=== PATIENT | female | born 1945 | race Caucasian/White ===

== ENCOUNTER 2021-01-06 15:22 | Inpatient (IN) | payer MEDICARE, OTHER ==
[~2021-01-06] VITALS: Ht 162.6 cm; Wt 52.2 kg
--- NOTE | 2021-01-06 15:25 | NUR ---
TO ER BED 12, BIB [facility] FROM [facility] FOR REFUSING TO EAT/DRINK OR TAKE MEDICATIONS, AAOX3, BREATHING EVEN AND NON LABORED, CONNECTED TO MONITOR
--- NOTE | 2021-01-06 16:38 | NUR ---
INITIATED R HAND #20G S/L; PATENT AND INTACT. BLOOD DRAWN AND GIVEN TO LAB
[2021-01-06 16:40] LABS: BASOPHILS % (AUTO) 0.4 % (0.0-2.0); EOSINOPHILS % (AUTO) 1.3 % (0.0-6.0); HEMATOCRIT 40 % (33-45); HEMOGLOBIN 13.4 g/dL (11.5-14.8); LYMPHOCYTES # (AUTO) 1.7 K/uL (0.8-4.8); LYMPHOCYTES % (AUTO) 27.9 % (20.0-44.0); MEAN CORPUSCULAR HGB CONC 33 g/dl (31.0-36.0); MEAN CORPUSCULAR VOLUME 85 fL (82-100); MONOCYTES # (AUTO) 0.4 K/uL (0.1-1.30); NEUTROPHILS # (AUTO) 3.9 K/uL (1.8-8.9); NEUTROPHILS % (AUTO) 63.4 % (43.0-81.0); PLATELET COUNT (AUTO) 259 K/uL (150-450); RED BLOOD CELL COUNT(AUTO) 4.76 MIL/uL (4.0-5.2); WHITE BLOOD COUNT (AUTO) 6.1 K/uL (4.3-11.0)
[2021-01-06 17:00] LABS: CALCIUM, SERUM 8.9 mg/dL (8.5-10.1); CARBON DIOXIDE 15 mmol/L (21-32); CHLORIDE 101 mmol/L (98-107); CREATININE 0.8 mg/dL (0.6-1.3); GLUCOSE 72 mg/dL (74-106); POTASSIUM 4.4 mmol/L (3.5-5.1); SODIUM SERUM 135 mmol/L (136-145); UREA NITROGEN, BLOOD 22 mg/dL (7-18)
[2021-01-06 17:03] LABS: ALCOHOL, BLOOD < 3 mg/dL (0-0)
[2021-01-06 17:04] LABS: ACETAMINOPHEN < 10 ug/ml (10-30)
[2021-01-06 17:05] LABS: THYROID STIMULATING HORMONE 1.119 uIU/mL (0.358-3.74)
--- NOTE | 2021-01-06 17:11 | NUR ---
URINE COLLECTED AND SENT TO LAB
[2021-01-06] MEDS ORDERED: RISP1TAB7 PO (17:26)
[2021-01-06] MEDS ORDERED: DOCU-141 PO (17:26)
[2021-01-06] MEDS ORDERED: POLY17PO4 PO (17:26)
[2021-01-06] MEDS ORDERED: ATOR10TA PO (17:26)
[2021-01-06] MEDS ORDERED: MAGN400O6 PO (17:26)
[2021-01-06] MEDS ORDERED: DIVA500T2 PO (17:26)
[2021-01-06] MEDS ORDERED: BENZ0.5T43 PO (17:26)
[2021-01-06] MEDS ORDERED: ACET325T53 PO (17:26)
[2021-01-06] MEDS ORDERED: BISA10SU11 RC (17:26)
[2021-01-06] MEDS ORDERED: NA P133E RC (17:26)
--- NOTE | 2021-01-06 17:28 | NUR ---
COVID SWAB DONE AND SENT TO LAB
[2021-01-06 17:47] LABS: BILIRUBIN,URINE SMALL (NEGATIVE); COLOR,URINE YELLOW (YELLOW); LEUKOCYTE ESTERASE ,URINE NEGATIVE (NEGATIVE); NITRITE, URINE NEGATIVE (NEGATIVE); PH,URINE 5.5 (5.0-8.0); PROTEIN,URINE NEGATIVE (NEGATIVE); UGLUCOSE NEGATIVE (NEGATIVE); UROBILINOGEN,URINE 0.2 EU/dL (0.2)
--- NOTE | 2021-01-06 18:26 | NUR ---
Barb workman in [facility] - 01/06/21 at 1827 by YADY CODE STATUS ORDER: DNPenny KIM MD
--- NOTE | 2021-01-06 18:27 | NUR ---
CODE STATUS POLST ORDER: DNR PER MULU KIM MD
[2021-01-06] MEDS ORDERED: NA PHOS,M-B/NA PHOS,DI-BA 1 EA ENEMA RC PRN (19:00)
[2021-01-06] MEDS ORDERED: ACETAMINOPHEN 325 MG TABLET PO PRN ×2 (19:00→22:30)
[2021-01-06] MEDS ORDERED: MAGNESIUM HYDROXIDE 30 ML UDC PO PRN ×2 (19:00→22:30)
[2021-01-06] MEDS ORDERED: BISACODYL SUPP (10 MG) 10 MG/SUPP.RECT SUPP.RECT RC PRN (19:00)
--- NOTE | 2021-01-06 19:50 | NUR ---
218-2 PER RN MIDDLE SCHOOL COACH
--- NOTE | 2021-01-06 19:55 | NUR ---
COVID SWAB SENT TO LAB
--- NOTE | 2021-01-06 20:34 | NUR ---
GAVE REPORT TO RAHEEM VICKERS FOR RAFAEL
[2021-01-06] MEDS: ATORVASTATIN 10 MG TABLET PO SCH (22:00)
[2021-01-06 22:02] VITALS: BP 128/53
--- NOTE | 2021-01-06 22:03 | NUR ---
GPS ADMISSION NOTE, RECEIVED PATIENT FROM [facility] . PATIENT ARRIVED ON THIS UNIT AT 2203 VIA STRETCHER WITH 2 EMT ESCORTS. PATIENT ADMITTED ON A 5150 HOLD FOR DTS AND GD. PER HOLD PATIENT HAS BEEN REFUSING TO EAT AND DRINK FOR FOUR DAYS. PATIENT HAS BEEN REFUSING MEDICATION, HAS POOR INSIGHT, AND HAS IMPAIRED JUDGMENT. PATIENT HAS NO VIABLE PLAN FOR SELF CARE. THE 5150 WAS REVIEWED AND THE DOCUMENTATION IN THE 5150 HOLD APPEARS TO REFLECT THE PRESENTATION OF THE PATIENT. UPON FACE TO FACE ASSESSMENT PATIENT IS NOTED TO BEING, DISHEVELED, DISORGANIZED, DEPRESSED, ISOLATIVE, COOPERATIVE, AND NEEDS REDIRECTION. PATIENT IS CURRENTLY LYING IN BED AWAKE, HAS NO S/S OR COMPLAINTS OF PAIN. PATIENT IS DISPLAYING NO S/S OF APPARENT DISTRESS. PATIENT BREATHING IS UNLABORED WITH EQUAL RISE AND FALL OF THE CHEST. PATIENT IS ALERT AND ORIENTATED X 2 ON ROOM AIR. PATIENT ASSISTED WITH TURING AND REPOSITIONING Q2HR AND PRN FOR COMFORT AND CIRCULATION. PATIENT HAS NO NEEDS AT THIS TIME. PATIENT DENIES SUICIDE IDEATIONS AND HOMICIDAL IDEATIONS AT THIS TIME. PATIENT REFUSED TO SIGNS ANY PAPER WORK AND THINKS THIS IS ALL A MISTAKE. PATIENT ADVISED OF HER HOLD AND PATIENT RIGHTS BOOKLET GIVEN. PATIENT IS UNDER THE PSYCHIATRIC CARE OF DR. RED AND THE MEDICAL CARE OF DR KIM. PATIENT BELONGINGS WERE INVENTORIED AND CHECKED FOR CONTRABAND. ALL CONTRABAND REMOVED AND STORED IN PATIENT HALLWAY LOCKER. PATIENT ADVANCED DIRECTIVES PREFERENCE, IMMUNIZATIONS QUESTIONER, NECESSARY PAPERWORK COMPLETED. PATIENT SKIN ASSESSMENT COMPLETED. PATIENT ORIENTATED TO ROOM, FLOOR, AND STAFF WITH ALL QUESTIONS ANSWERED. PATIENT EDUCATED ON THE USE OF THE CALL RILEY. PATIENT BED SIDE RAILS ARE UP X 2 FOR SAFETY. PATIENT BED IS LOCKED, LOW AND I WILL CONTINUE TO MONITOR THIS PATIENT Q 15 MIN WITH THE HELP OF STAFF TO MAINTAIN SAFETY.
--- NOTE | 2021-01-06 22:24 | NUR ---
GPS RN NOTE, PATIENT REFUSED LIPITOR 10MG PO HS. OFFERED LIPITOR THREE TIMES AND STILL PATIENT REFUSED STATING, " NO I DON'T NEED CHOLESTEROL MEDICATION ". EDUCATED PATIENT ON THE RISKS AND BENEFITS OF TAKING AND REFUSING LIPITOR. WILL CONTINUE TO MONITOR THIS PATIENT WITH THE HELP OF STAFF.
[2021-01-06] MEDS ORDERED: MAG HYDROX/AL HYDROX/SIMETH 30 ML UDC PO PRN (22:30)
[2021-01-06] MEDS ORDERED: TEMAZEPAM 7.5 MG CAPSULE PO PRN (22:30)
[2021-01-06] MEDS ORDERED: BLOOD SUGAR DIAGNOSTIC 1 EACH STRIP IN ONE (23:30)
[2021-01-07 08:00] VITALS: BP 100/60
[2021-01-07] MEDS: ENSURE ENLIVE CHOC 237 ML CAN PO SCH ×2 (08:00→16:05)
[2021-01-07] MEDS: DOCUSATE SODIUM 100 MG CAPSULE PO SCH ×4 (09:00→16:05)
[2021-01-07] MEDS: POLYETHYLENE GLYCOL 3350 17 GM POWD.PACK PO SCH (09:40)
[2021-01-07 16:00] VITALS: BP 117/73
--- NOTE | 2021-01-07 19:30 | NUR ---
GPS RN NOTE, RECEIVED PATIENT AWAKE AND IN BED, NO S/S OR COMPLAINTS OF PAIN AT THIS TIME. PATIENT IS DISPLAYING NO S/S OF APPARENT DISTRESS AT THIS TIME. PATIENT BREATHING IS UNLABORED WITH EQUAL RISE AND FALL OF THE CHEST. PATIENT IS ALERT AND ORIENTED X 2 ON ROOM AIR WITH A SPO2 96%. PATIENT IS SELECTIVE WITH MEDICATIONS, CALM, COOPERATIVE, AND NEEDS REDIRECTION. PATIENT DENIES SUICIDAL AND HOMICIDAL IDEATIONS AT THIS TIME. PATIENT ASSISTED WITH TURNING AND REPOSITIONING Q2HR AND PRN FOR COMFORT AND CIRCULATION. PATIENT HAS NO NEEDS AT THIS TIME. PATIENT EDUCATED ON THE USE OF THE CALL RILEY. PATIENT BED SIDE RAILS UP X 2 FOR SAFETY. PATIENT BED IS LOCKED, LOW, WITH BED ALARM ON. WILL CONTINUE TO MONITOR THIS PATIENT Q15 MINUTES WITH THE HELP OF STAFF TO MAINTAIN SAFETY.
[2021-01-07 20:11] VITALS: BP 110/69
[2021-01-07 20:13] VITALS: BP 110/69
[2021-01-07] MEDS: ATORVASTATIN 10 MG TABLET PO SCH (21:35)
[2021-01-07] MEDS: risperiDONE 1 MG TABLET PO SCH (22:11)
[2021-01-08 08:00] VITALS: BP 100/59
[2021-01-08] MEDS: ENSURE ENLIVE CHOC 237 ML CAN PO SCH ×2 (08:00→16:15)
[2021-01-08] MEDS: DIVALPROEX SODIUM 250 MG TABLET.DR PO SCH ×2 (10:45→21:05)
[2021-01-08] MEDS: risperiDONE 1 MG TABLET PO SCH ×2 (10:45→21:05)
[2021-01-08] MEDS: POLYETHYLENE GLYCOL 3350 17 GM POWD.PACK PO SCH (10:48)
[2021-01-08] MEDS: DOCUSATE SODIUM 100 MG CAPSULE PO SCH ×2 (10:48→16:14)
[2021-01-08 16:10] VITALS: BP 91/63
[2021-01-08 19:59] VITALS: BP 99/52
[2021-01-08] MEDS: ATORVASTATIN 10 MG TABLET PO SCH (21:05)
--- NOTE | 2021-01-09 07:30 | NUR ---
RN NOTES Patient alert ,depressed,flat affect ,labile , following directions med compliant, disorganized thoughts ,encourage patient to verbalize feelings and thoughts ,redirect as needed . WILL MONITOR
[2021-01-09 08:00] VITALS: BP 99/66
[2021-01-09] MEDS: ENSURE ENLIVE CHOC 237 ML CAN PO SCH ×2 (08:00→16:59)
[2021-01-09] MEDS: DOCUSATE SODIUM 100 MG CAPSULE PO SCH ×2 (09:14→16:58)
[2021-01-09] MEDS: POLYETHYLENE GLYCOL 3350 17 GM POWD.PACK PO SCH (09:14)
[2021-01-09] MEDS: DIVALPROEX SODIUM 250 MG TABLET.DR PO SCH ×2 (09:14→16:58)
[2021-01-09] MEDS: risperiDONE 1 MG TABLET PO SCH ×2 (09:15→22:07)
[2021-01-09] MEDS: LORAZEPAM 0.5 MG TABLET PO PRN (09:15)
--- NOTE | 2021-01-09 11:40 | NUR ---
GALINA Initial Discharge Plan: Pt currently resides at [facility], however, pt does not want to return back. Pt does not have any supportive contact at this time. GALINA will work with the MD and treatment team to coordinate appropriate discharge.
--- NOTE | 2021-01-09 12:07 | NUR ---
SNF Referral: GALINA faxed clinicals to Raquel from [facility] for placement option.
--- NOTE | 2021-01-09 14:09 | NUR ---
SNF Contact SW spoke with Raquel from [facility] who stated they cannot accept pt due to not having SNF days.
--- NOTE | 2021-01-09 14:10 | NUR ---
SNF Contact: SW spoke with Tanesha villegas from [facility] who stated that pt is welcomed back upon dc, however, they stated pt does not want to go back.
--- NOTE | 2021-01-09 14:10 | NUR ---
Assisted Living: SW spoke with Daly lopez for placement and she stated that she can place pt at an assisted living and will give this SW information.
[2021-01-09 16:00] VITALS: BP 99/56
[2021-01-09 16:22] VITALS: BP 99/56
[2021-01-09] MEDS: ATORVASTATIN 10 MG TABLET PO SCH (22:07)
[2021-01-10] MEDS: ENSURE ENLIVE CHOC 237 ML CAN PO SCH ×2 (08:00→17:00)
[2021-01-10] MEDS ORDERED: risperiDONE 1 MG TABLET PO SCH (09:00)
[2021-01-10] MEDS: DOCUSATE SODIUM 100 MG CAPSULE PO SCH ×2 (09:00→17:00)
[2021-01-10] MEDS: POLYETHYLENE GLYCOL 3350 17 GM POWD.PACK PO SCH (09:24)
[2021-01-10] MEDS: DIVALPROEX SODIUM 250 MG TABLET.DR PO SCH ×3 (09:24→17:35)
--- NOTE | 2021-01-10 13:06 | NUR ---
GALINA Note: SW met with patient and gave pt options of an assisted living. Pt stated she wants to go to "[facility]". Pt appeared labile and angry. Pt yelled "you are a liar". SW unable to discuss any placement options with pt at this time.
[2021-01-10] MEDS: risperiDONE 1 MG TABLET PO SCH ×2 (15:38→21:43)
[2021-01-10] MEDS: BENZTROPINE MESYLATE (1 MG) 1 MG TABLET PO SCH ×2 (15:39→21:43)
[2021-01-10 16:33] VITALS: BP 119/50
[2021-01-10] MEDS: ATORVASTATIN 10 MG TABLET PO SCH (21:43)
[2021-01-11] MEDS: ENSURE ENLIVE CHOC 237 ML CAN PO SCH ×2 (08:00→17:00)
[2021-01-11] MEDS: POLYETHYLENE GLYCOL 3350 17 GM POWD.PACK PO SCH ×2 (09:00→09:46)
[2021-01-11] MEDS: DOCUSATE SODIUM 100 MG CAPSULE PO SCH ×3 (09:00→17:00)
[2021-01-11] MEDS: DIVALPROEX SODIUM 250 MG TABLET.DR PO SCH ×3 (09:46→18:00)
[2021-01-11] MEDS: BENZTROPINE MESYLATE (1 MG) 1 MG TABLET PO SCH ×2 (09:47→17:59)
[2021-01-11] MEDS: risperiDONE 1 MG TABLET PO SCH ×4 (09:47→21:41)
--- NOTE | 2021-01-11 18:00 | NUR ---
day uneventful,keeps to self.isolative.
[2021-01-11] MEDS: ATORVASTATIN 10 MG TABLET PO SCH (21:41)
[2021-01-12] MEDS: ENSURE ENLIVE CHOC 237 ML CAN PO SCH ×2 (08:00→17:17)
[2021-01-12] MEDS: POLYETHYLENE GLYCOL 3350 17 GM POWD.PACK PO SCH (08:55)
[2021-01-12] MEDS: DOCUSATE SODIUM 100 MG CAPSULE PO SCH ×2 (08:55→16:12)
[2021-01-12] MEDS: DIVALPROEX SODIUM 250 MG TABLET.DR PO SCH ×3 (08:55→16:12)
[2021-01-12] MEDS: BENZTROPINE MESYLATE (1 MG) 1 MG TABLET PO SCH ×2 (08:55→16:12)
[2021-01-12] MEDS: risperiDONE 1 MG TABLET PO SCH ×4 (08:55→21:34)
--- NOTE | 2021-01-12 15:11 | NUR ---
Court Hearing: Patient's court hearing for 0860 was today and it was upheld for GD.
--- NOTE | 2021-01-12 19:30 | NUR ---
GPS RN NOTE, RECEIVED PATIENT AWAKE AND IN BED, NO S/S OR COMPLAINTS OF PAIN AT THIS TIME. PATIENT IS DISPLAYING NO S/S OF APPARENT DISTRESS AT THIS TIME. PATIENT BREATHING IS UNLABORED WITH EQUAL RISE AND FALL OF THE CHEST. PATIENT IS ALERT AND ORIENTED X 2 ON ROOM AIR WITH A SPO2 96%. PATIENT IS COMPLIANT WITH MEDICATIONS, ANXIOUS AT TIMES, DEPRESSED, ISOLATIVE, COOPERATIVE, AND NEEDS REDIRECTION. PATIENT DENIES SUICIDAL AND HOMICIDAL IDEATIONS AT THIS TIME. PATIENT ASSISTED WITH TURNING AND REPOSITIONING Q2HR AND PRN FOR COMFORT AND CIRCULATION. PATIENT HAS NO NEEDS AT THIS TIME. PATIENT EDUCATED ON THE USE OF THE CALL RILEY. PATIENT BED SIDE RAILS UP X 2 FOR SAFETY. PATIENT BED IS LOCKED, LOW, WITH BED ALARM ON. WILL CONTINUE TO MONITOR THIS PATIENT Q15 MINUTES WITH THE HELP OF STAFF TO MAINTAIN SAFETY.
[2021-01-12] MEDS: ATORVASTATIN 10 MG TABLET PO SCH (21:34)
[2021-01-13 08:00] VITALS: BP 110/72
[2021-01-13] MEDS: BENZTROPINE MESYLATE (1 MG) 1 MG TABLET PO SCH ×2 (08:09→16:16)
[2021-01-13] MEDS: risperiDONE 1 MG TABLET PO SCH ×4 (08:09→21:17)
[2021-01-13] MEDS: DIVALPROEX SODIUM 250 MG TABLET.DR PO SCH ×3 (08:09→16:16)
[2021-01-13] MEDS: POLYETHYLENE GLYCOL 3350 17 GM POWD.PACK PO SCH (08:09)
[2021-01-13] MEDS: DOCUSATE SODIUM 100 MG CAPSULE PO SCH ×2 (09:30→16:16)
[2021-01-13 16:00] VITALS: BP 136/74
[2021-01-13] MEDS: ENSURE ENLIVE 237 ML LIQUID (VANILLA) PO SCH (17:11)
[2021-01-13 21:17] VITALS: BP 98/52
[2021-01-13] MEDS: ATORVASTATIN 10 MG TABLET PO SCH (21:17)
[2021-01-14] MEDS: ENSURE ENLIVE 237 ML LIQUID (VANILLA) PO SCH ×2 (08:00→17:00)
[2021-01-14] MEDS: POLYETHYLENE GLYCOL 3350 17 GM POWD.PACK PO SCH (09:00)
[2021-01-14] MEDS: DOCUSATE SODIUM 100 MG CAPSULE PO SCH ×2 (09:00→17:00)
[2021-01-14] MEDS: risperiDONE 1 MG TABLET PO SCH ×4 (10:06→22:05)
[2021-01-14] MEDS: BENZTROPINE MESYLATE (1 MG) 1 MG TABLET PO SCH ×2 (10:06→17:06)
[2021-01-14] MEDS: DIVALPROEX SODIUM 250 MG TABLET.DR PO SCH ×3 (10:06→17:06)
--- NOTE | 2021-01-14 10:53 | NUR ---
REFUSED AM LABS EQUIPMENT CLEANER AWARE.
--- NOTE | 2021-01-14 16:26 | NUR ---
KEEPING TO SELF,MED COMPLIANT,REFUSING LAB WORK TODAY.BOTH MEDICAL MD AND PSYCH AWARE.
[2021-01-14] MEDS ORDERED: ATORVASTATIN 10 MG TABLET ONE (22:03)
[2021-01-14] MEDS: ATORVASTATIN 10 MG TABLET PO SCH (22:05)
[2021-01-15] MEDS: ENSURE ENLIVE 237 ML LIQUID (VANILLA) PO SCH ×2 (08:00→17:05)
[2021-01-15] MEDS: risperiDONE 1 MG TABLET PO SCH ×4 (08:13→21:07)
[2021-01-15] MEDS: BENZTROPINE MESYLATE (1 MG) 1 MG TABLET PO SCH ×2 (08:13→17:04)
[2021-01-15] MEDS: POLYETHYLENE GLYCOL 3350 17 GM POWD.PACK PO SCH (08:14)
[2021-01-15] MEDS: DIVALPROEX SODIUM 250 MG TABLET.DR PO SCH ×3 (08:14→17:04)
[2021-01-15] MEDS: DOCUSATE SODIUM 100 MG CAPSULE PO SCH ×2 (08:14→17:00)
[2021-01-15] MEDS: LORAZEPAM 0.5 MG TABLET PO PRN (21:07)
[2021-01-15] MEDS: ATORVASTATIN 10 MG TABLET PO SCH (21:07)
--- NOTE | 2021-01-16 07:57 | NUR ---
Discharge Note: Patient will be discharged to [facility] facility to [facility] [address] [place] [address]; ([phone]) via Ambulance transportation at 2PM. Cooker Sulfate spoke with Tanesha, Plate Shop Helper at [facility] ([phone]) who stated patient will be accepted at facility today. Patient is alert and oriented x2 and is not able to plan for self-care at this time but is willing to accept care provided byF the facility. Patient denies any suicidal or homicidal ideations. Patient is aware and agreeable with discharge plans. Patient does not have any family members at this time. Patient will continue to follow-up with (psychiatrist) Dr. Childress [address], [place] [address]; ([phone]) and (commercial lines account assistant) Dr. Montague [address], [place] [address]; ([phone]). Patient presents with euthymic mood and congruent affect.
[2021-01-16] MEDS: ENSURE ENLIVE 237 ML LIQUID (VANILLA) PO SCH (08:00)
[2021-01-16] MEDS: DOCUSATE SODIUM 100 MG CAPSULE PO SCH (08:31)
[2021-01-16] MEDS: BENZTROPINE MESYLATE (1 MG) 1 MG TABLET PO SCH (08:31)
[2021-01-16] MEDS: risperiDONE 1 MG TABLET PO SCH ×2 (08:31→12:50)
[2021-01-16] MEDS: DIVALPROEX SODIUM 250 MG TABLET.DR PO SCH ×2 (08:31→12:50)
[2021-01-16] MEDS: POLYETHYLENE GLYCOL 3350 17 GM POWD.PACK PO SCH (08:39)
--- NOTE | 2021-01-16 09:00 | NUR ---
RN NOTE- PT WITHDRAWN ISOLATIVE FLAT AFFECT, NEEDS ATTENDED FOR DC TODAY
--- NOTE | 2021-01-16 14:00 | NUR ---
RN DC NOTE- PT DC AT THIS TIME TO [facility]. VS STABLE, MED COMPLIANT NEEDS ATTENDED, PT AMBULATORY W SKIN INTACT . BRUISING FROM ADMISSION HAS RESOLVED. NO PHOTOS NEEDED. AFTERCARE AND DC PLANNING AND RX DISCUSSED AND REPORT GIVEN AT FACILITY. ESCORTED OF UNIT AFTER REMOVAL OF ID BAND AND VALUABLES RETURNED.
== END 2021-01-16 14:00 | DRG 885 ==
LOC: ER 15:28 → GPS 21:33
PROVIDERS: ADMIT Psychiatry & Neurology Psychiatry; ATTEND Family Medicine
DX: F25.0 Schizoaffective disorder, bipolar type (principal); F32.A Depression, unspecified; F41.9 Anxiety disorder, unspecified; Z91.81 History of falling; Z73.6 Limitation of activities due to disability; Z79.899 Other long term (current) drug therapy; Z66 Do not resuscitate; R27.8 Other lack of coordination
CPT/HCPCS: 36415; 80048-TC; 84439-TC; 84443-TC; 85025-TC; 87081-TC; C9803; G0480; U0003

== ENCOUNTER 2021-05-20 20:10 | Inpatient (IN) | payer MEDICARE, OTHER ==
[~2021-05-20] VITALS: Ht 162.6 cm; Wt 49.0 kg
[~2021-05-20 20:10] MED LIST: ACET325T53 PO; ATOR10TA PO; BISA10SU11 RC; DOCU-141 PO; MAGN400O6 PO; NA P133E RC; POLY17PO4 PO
--- NOTE | 2021-05-20 20:30 | NUR ---
TO ER BED 9, BIBPA FROM [facility] C/O POOR APPETITE X2DAYS, AAOX3, BREATHING EVEN AND NON LABORED, CONNECTED TO MONITOR, AWAITING MD KENDALL
[2021-05-20] MEDS ORDERED: ONDANSETRON HCL/PF 4 MG/2 ML VIAL ONE (20:45)
[2021-05-20] MEDS ORDERED: ONDANSETRON HCL/PF - ER 4 MG/2 ML VIAL IV ONE (21:00)
[2021-05-20] MEDS ORDERED: IV NS 0.9% 1,000 ML BAG IV ONE (21:00)
--- NOTE | 2021-05-20 21:06 | NUR ---
LAC #20G S/L; PATENT AND INTACT. BLOOD COLLECTED AND SENT TO LAB
--- NOTE | 2021-05-20 21:13 | NUR ---
PT CANNOT PROVIDE URINE AT THIS TIME, WILL ATTEMPT TO COLLECT LATER.
[2021-05-20 21:20] LABS: BASOPHILS % (AUTO) 0.2 % (0.0-2.0); EOSINOPHILS % (AUTO) 0.5 % (0.0-6.0); HEMATOCRIT 42 % (33-45); HEMOGLOBIN 13.6 g/dL (11.5-14.8); LYMPHOCYTES # (AUTO) 1.3 K/uL (0.8-4.8); LYMPHOCYTES % (AUTO) 10.7 % (20.0-44.0); MEAN CORPUSCULAR HGB CONC 32 g/dl (31.0-36.0); MEAN CORPUSCULAR VOLUME 85 fL (82-100); MONOCYTES # (AUTO) 0.8 K/uL (0.1-1.30); MONOCYTES % (AUTO) 6.5 % (2.0-12.0); NEUTROPHILS # (AUTO) 9.6 K/uL (1.8-8.9); NEUTROPHILS % (AUTO) 82.1 % (43.0-81.0); PLATELET COUNT (AUTO) 271 K/uL (150-450); RED BLOOD CELL COUNT(AUTO) 4.98 MIL/uL (4.0-5.2); WHITE BLOOD COUNT (AUTO) 11.8 K/uL (4.3-11.0)
--- NOTE | 2021-05-20 22:04 | NUR ---
PT STILL UNABLE TO PROVIDE URINE AT THIS TIME. REFUSED NANCE CATHETER. WILL ATEMPT TO COLLECT AT A LATER TIME.
[2021-05-20 22:14] LABS: ALANINE AMINOTRANSFERASE 18 U/L (12-78); ALBUMIN 4.1 g/dL (3.4-5.0); ALKALINE PHOSPHATASE 43 U/L (46-116); ASPARTATE AMINOTRANSFERASE 18 U/L (15-37); BILIRUBIN,DIRECT 0.2 mg/dL (0.0-0.2); BILIRUBIN,TOTAL 0.8 mg/dL (0.2-1.0); CALCIUM, SERUM 10.1 mg/dL (8.5-10.1); CARBON DIOXIDE 16 mmol/L (21-32); CHLORIDE 97 mmol/L (98-107); CREATININE 1.2 mg/dL (0.6-1.3); GLUCOSE 95 mg/dL (74-106); LIPASE 68 U/L (73-393); POTASSIUM 4.2 mmol/L (3.5-5.1); SODIUM SERUM 136 mmol/L (136-145); TOTAL PROTEIN, SERUM 7.5 g/dL (6.4-8.2); UREA NITROGEN, BLOOD 28 mg/dL (7-18)
[2021-05-20] MEDS ORDERED: IOHEXOL-300 100 ML VIAL IV ONE (22:51)
[2021-05-20] MEDS ORDERED: CT SWABBABLE VALVE TRANS SET 1 EA INFUS.SET MC ONE (22:51)
[2021-05-20] MEDS ORDERED: IV NS 0.9% 250 ML IV ONE (22:52)
--- NOTE | 2021-05-20 23:00 | NUR ---
PT TRANSPORTED TO CT SCAN VIA [facility]
--- NOTE | 2021-05-20 23:20 | NUR ---
PT RETURNED FROM [facility] VIA [facility]
--- NOTE | 2021-05-20 23:25 | NUR ---
PT STILL UNABLE TO PROVIDE URINE SAMPLE. PT DOES NOT WISH TO HAVE NANCE CATHETER INSERTION. WILL ATEMPT AGAIN.
--- NOTE | 2021-05-20 23:30 | NUR ---
COVID SWAB COLLECTED AND SENT TO LAB
--- NOTE | 2021-05-21 00:42 | NUR ---
PAGED EPIC AWAITING A CALL BACK
--- NOTE | 2021-05-21 00:55 | NUR ---
URINE COLLECTED AND SENT TO LAB
--- NOTE | 2021-05-21 02:04 | NUR ---
ROOM 325-2
[2021-05-21 02:23] LABS: BILIRUBIN,URINE SMALL (NEGATIVE); COLOR,URINE YELLOW (YELLOW); LEUKOCYTE ESTERASE ,URINE NEGATIVE (NEGATIVE); NITRITE, URINE NEGATIVE (NEGATIVE); PH,URINE 5.5 (5.0-8.0); PROTEIN,URINE NEGATIVE (NEGATIVE); UGLUCOSE NEGATIVE (NEGATIVE); UROBILINOGEN,URINE 0.2 EU/dL (0.2)
--- NOTE | 2021-05-21 02:38 | NUR ---
REPORT GIVEN TO EDGAR Bower RN FOR RAFAEL
[2021-05-21 02:41] LABS: BACTERIA,URINE Rare /HPF (None Seen); SQUAMOUS EPITHELIAL CELL,UR 0-2 /HPF (None Seen); WBC,URINE 0-2 /HPF (0-3)
[2021-05-21 03:05] VITALS: BP 130/68
--- NOTE | 2021-05-21 03:14 | NUR ---
PT TANSPORTED TO 325 VIA GURNEY WITHOUT INCIDENT
--- NOTE | 2021-05-21 04:26 | NUR ---
Patient is A&Ox3 but not oriented well to situation and is forgetful. Patient also shows bizarre behavior at times. When asked about PMH patient replies yes that she has every diagnosis and states she smokes 3 packs a day but does not. Obtained real PMH from [facility]. Initial vital signs stable. Patient appears cachexic, frail and reports not eating for 2 days and poor appetite for even longer. Weight 101.5 height 5 ft 4. Can walk short distances with 1 person assist. LAC #20G intact and patent. Pupils equal and reactive to light, can move extremities evenly though hands do have slight tremors (pt. dx Parkinsons) heart rate and rhythm regular, lung sounds clear, abdomen soft and non-tender, patient denies pain when palpated. Bowel sounds hypoactive patient cannot remember last BM, urine clear and yellow -pt. is continent. Bed alarm on, side rails up x3, in lowest position, HOB at 30. Patient oriented to staff, unit protocols, bed controls, call light.
--- NOTE | 2021-05-21 06:22 | NUR ---
No significant change since admit. IV still intact and patent. Kept safe overnight. At baseline mentation.
[2021-05-21] MEDS: IV NS 0.9% 1,000 ML IV PRN ×2 (06:29→20:07)
[2021-05-21] MEDS ORDERED: ACETAMINOPHEN 325 MG TABLET PO PRN (06:30)
[2021-05-21] MEDS ORDERED: ONDANSETRON HCL/PF 4 MG/2 ML VIAL IVP PRN (06:30)
[2021-05-21] MEDS: PANTOPRAZOLE 40 MG TABLET.DR PO SCH (06:44)
--- NOTE | 2021-05-21 07:22 | NUR ---
RN OPENING NOTES RECEIVED PATIENT IN BED, AWAKE, A/OX3, WITH PERIODS OF FORGETFULNESS NOTED. NO S/S OF DISTRESS. ON ROOM AIR, TOLERATING WELL, NO S/SX OF DISTRESS NOTED. IV ACCESS ON LAC G#20 ONGOING IV OF NS X 75 CC/HR, INFUSING WELL, NO S/SX OF INFILTRATION NOTED. SAFETY MEASURES IN PLACE: BED AT LOWEST LOCKED POSITION, SIDE RAILS UP X2, CALL RILEY WITHIN REACH. WILL CONTINUE TO MONITOR PATIENT ACCORDINGLY.
[2021-05-21 08:00] VITALS: BP 110/56
[2021-05-21] MEDS ORDERED: MAG30ORA PO (08:47)
[2021-05-21] MEDS ORDERED: PSYL3.4P6 PO (08:47)
[2021-05-21] MEDS ORDERED: ACET-868 PO (08:47)
[2021-05-21] MEDS ORDERED: AMIN30LI2 PO (08:47)
[2021-05-21] MEDS ORDERED: MULT-447 PO (08:47)
[2021-05-21 16:00] VITALS: BP 86/56
[2021-05-21] MEDS: ENSURE ENLIVE 237 ML LIQUID (VANILLA) PO SCH (17:07)
--- NOTE | 2021-05-21 18:22 | NUR ---
RN NOTES PSYCH CONSULT WITH DR. RED RE; PSYCHOSIS. PATIENT'S INFORMATION FORWARDED TO GPS DEPARTMENT.
--- NOTE | 2021-05-21 18:35 | NUR ---
RN CLOSING NOTES PATIENT IN BED, ASLEEP, EASILY AWAKEN BY VERBAL AND TACTILE STIMULI, A/OX3, WITH PERIODS OF FORGETFULNESS NOTED. NO S/S OF DISTRESS. ON ROOM AIR, TOLERATING WELL. IV ACCESS ON LAC G#20 ONGOING IV OF NS X 75 CC/HR, INFUSING WELL, NO S/SX OF INFILTRATION NOTED. SAFETY MEASURES IN PLACE: BED AT LOWEST LOCKED POSITION, SIDE RAILS UP X2, CALL RILEY WITHIN REACH. ALL NEEDS ATTENDED AND MET. DUE MEDS GIVEN ORDERED. WILL ENDORSE TO ONCOMING SHIFT FOR RAFAEL.
[2021-05-21 19:00] VITALS: BP 80/45
--- NOTE | 2021-05-21 19:30 | NUR ---
RN opening notes Received Pt in bed. Pt is alert and orientedX3, calm and look depressed. On room air. No SOB. No S/s of distress noted. Pt denies SI/HI at this time. Reality orientation provided. Snacks is given and provided. IV site at LAC# 20 is clean, intact and infuising well NS@ 75 ml/hr. Safety precautions is maintained. Bed at low position, brakes locked, side rails upX3 and hob elevated. Will continue to monitor.
[2021-05-21 20:15] VITALS: BP 80/45
[2021-05-21 20:53] VITALS: BP 95/50
[2021-05-22 06:28] LABS: BASOPHILS % (AUTO) 0.5 % (0.0-2.0); EOSINOPHILS % (AUTO) 4.5 % (0.0-6.0); HEMATOCRIT 32 % (33-45); HEMOGLOBIN 11.1 g/dL (11.5-14.8); LYMPHOCYTES # (AUTO) 1.5 K/uL (0.8-4.8); LYMPHOCYTES % (AUTO) 26.6 % (20.0-44.0); MEAN CORPUSCULAR HGB CONC 35 g/dl (31.0-36.0); MEAN CORPUSCULAR VOLUME 82 fL (82-100); MONOCYTES # (AUTO) 0.4 K/uL (0.1-1.30); MONOCYTES % (AUTO) 6.4 % (2.0-12.0); NEUTROPHILS # (AUTO) 3.5 K/uL (1.8-8.9); PLATELET COUNT (AUTO) 193 K/uL (150-450); WHITE BLOOD COUNT (AUTO) 5.7 K/uL (4.3-11.0)
--- NOTE | 2021-05-22 06:55 | NUR ---
RN closing notes Pt is resting in bed comfortably. Pt is alert and orientedX3. On room air. No SOB. No S/s of distress noted. IV site at LAC# 20 is clean, intact and infuising well NS@ 75 ml/hr. Kept Pt clean, dry and comfortable. Safety precautions is maintained. Bed at low position, brakes locked, side rails upX3 and hob elevated. Will endorse to am nurse for RAFAEL.
[2021-05-22 07:17] LABS: CALCIUM, SERUM 8.8 mg/dL (8.5-10.1); CREATININE 0.8 mg/dL (0.6-1.3); MAGNESIUM 2.1 mg/dL (1.8-2.4); PHOSPHORUS 2.9 mg/dL (2.5-4.9)
--- NOTE | 2021-05-22 07:20 | NUR ---
RN OPENING NOTES PT IN BED, ASLEEP, EASILY AWAKENED, NO S/S OF DISTRESS. ON ROOM AIR, TOLERATING WELL. IV ACCESS ON LAC G#20 ONGOING IV OF NS X 75 CC/HR, INFUSING WELL, NO S/SX OF INFILTRATION NOTED. SAFETY MEASURES IN PLACE: BED AT LOWEST LOCKED POSITION, SIDE RAILS UP X2, CALL RILEY WITHIN REACH. WILL CONTINUE TO MONITOR / ASSIST
[2021-05-22] MEDS: PANTOPRAZOLE 40 MG TABLET.DR PO SCH (07:41)
[2021-05-22 08:27] VITALS: BP 106/63
[2021-05-22] MEDS: ENSURE ENLIVE 237 ML LIQUID (VANILLA) PO SCH ×2 (09:03→16:51)
[2021-05-22] MEDS: IV NS 0.9% 1,000 ML IV PRN (09:26)
[2021-05-22] MEDS: POTASSIUM CHLORIDE 20 MEQ TAB.PRT.SR PO SCH ×2 (10:00→10:21)
[2021-05-22] MEDS: POTASSIUM CL. PREMIX PERIPHER. 50 ML IV SCH ×2 (11:15→12:03)
[2021-05-22] MEDS: BENZTROPINE MESYLATE (1 MG) 1 MG TABLET PO SCH ×2 (13:00→16:51)
--- NOTE | 2021-05-22 13:18 | NUR ---
RN NOTE- IV LEAKING TO LAC. ATTEMPTED NEW PIV SITE. ANOTHER RN TRIED. MIDLINE ORDERED BT DR KIM
[2021-05-22 15:57] VITALS: BP 107/65
[2021-05-22] MEDS: risperiDONE 0.25 MG TABLET PO SCH (16:51)
--- NOTE | 2021-05-22 18:44 | NUR ---
RN CLOSING NOTES PT IN BED, NO S/S OF DISTRESS. ON ROOM AIR, TOLERATING WELL, AWAITING MIDLINE INSERTION,.NO INTAKE TODAY, REFUSING RX, FOOD AND WATER. SAFETY MEASURES IN PLACE: BED AT LOWEST LOCKED POSITION, SIDE RAILS UP X2, CALL RILEY WITHIN REACH. WILL CONTINUE TO MONITOR / ASSIST
--- NOTE | 2021-05-22 19:32 | NUR ---
MS RN OPENING RECEIVED PATIENT IN BED A/OX2. NO S/S OF APPARENT DISTRESS ON ROOM AIR. NO C/O PAIN. PATIENT GIVEN APPLE JUICE AT THIS TIME-- PASSED NURSING SWALLOW EVAL. NO IV LINES AT THE MOMENT-- AWAITING MIDLINE INSERTION. SAFETY IN PLACE. WILL CONTINUE WITH PATIENT'S PLAN CARE PLAN.
[2021-05-22 20:00] VITALS: BP 100/50
--- NOTE | 2021-05-22 21:50 | NUR ---
MS RN NOTE FOLLOWED UP WITH MIDLINE WITH THE CHARGE NURSE, MICHAEL. SAID THEY'LL BE HERE AT @2300.
[2021-05-22] MEDS: MIRTAZAPINE 15 MG TABLET PO SCH (22:00)
--- NOTE | 2021-05-22 23:33 | NUR ---
ms rn note pt. refused remeron. explained benefits and risks. patient has no response and just quiet.
--- NOTE | 2021-05-22 23:38 | NUR ---
ms rn note Daniel for midline is at bedside.
--- NOTE | 2021-05-23 00:19 | NUR ---
MS RN NOTE NEW R.UA MIDLINE 18 G. PATIENT POTASSIUM RESTARTED. 15 MINUTES MORE LEFT FROM THE LAST BAG. WILL MONITOR
[2021-05-23] MEDS ORDERED: POTASSIUM CL. PREMIX PERIPHER. 100 ML ONE (01:03)
[2021-05-23] MEDS: POTASSIUM CL. PREMIX PERIPHER. 50 ML IV SCH ×6 (01:06→22:43)
--- NOTE | 2021-05-23 01:11 | NUR ---
ms rn note 3rd bag of potassium hanged.
--- NOTE | 2021-05-23 02:59 | NUR ---
ms rn note last bag of potassium hanged.
--- NOTE | 2021-05-23 06:55 | NUR ---
MS RN CLOSING PATIENT IN BED, CONTINUE TO BE WITHDRAWN WITH FLAT AFFECT. NO S/S OF APPARENT DISTRESS IN ROOM AIR. NO C/O PAIN. IV NS RUNNING @75CC/HR. ALL NEEDS ATTENDED. SAFETY KEPT IN PLACE THE WHOLE SHIFT. WILL ENDORSE TO MORNING SHIFT RN FOR CONTINUITY OF CARE.
[2021-05-23] MEDS: PANTOPRAZOLE 40 MG TABLET.DR PO SCH (07:30)
--- NOTE | 2021-05-23 07:33 | NUR ---
RN OPENING NOTES PT IN BED, ASLEEP, EASILY AWAKENED, NO S/S OF DISTRESS. ON ROOM AIR, TOLERATING WELL. IV ACCESS SIDDHARTHA MIDLINE - NS X 75 CC/HR, INFUSING WELL, NO S/SX OF INFILTRATION NOTED. ENCOURAGE INTAKE. SAFETY MEASURES IN PLACE: BED AT LOWEST LOCKED POSITION, SIDE RAILS UP X2, CALL RILEY WITHIN REACH. WILL CONTINUE TO MONITOR / ASSIST
[2021-05-23] MEDS: ENSURE ENLIVE 237 ML LIQUID (VANILLA) PO SCH ×2 (07:49→16:45)
--- NOTE | 2021-05-23 08:07 | NUR ---
RN NOTE- DR KIM SAW PT. CHANGED IVF TO D5 1/2 NS AT 75 CC/HR. COMPLIED
[2021-05-23 08:14] VITALS: BP 150/74
[2021-05-23] MEDS: BENZTROPINE MESYLATE (1 MG) 1 MG TABLET PO SCH ×2 (09:00→16:45)
[2021-05-23] MEDS: risperiDONE 0.25 MG TABLET PO SCH ×3 (09:00→16:45)
[2021-05-23] MEDS: IV D5/0.45 NACL 1,000 ML IV SCH ×2 (09:17→21:46)
[2021-05-23 15:00] LABS: BASOPHILS % (AUTO) 0.4 % (0.0-2.0); EOSINOPHILS % (AUTO) 2.7 % (0.0-6.0); HEMATOCRIT 35 % (33-45); HEMOGLOBIN 11.8 g/dL (11.5-14.8); MEAN CORPUSCULAR HGB CONC 34 g/dl (31.0-36.0); MEAN CORPUSCULAR VOLUME 82 fL (82-100); MONOCYTES # (AUTO) 0.3 K/uL (0.1-1.30); MONOCYTES % (AUTO) 4.8 % (2.0-12.0); NEUTROPHILS # (AUTO) 4.6 K/uL (1.8-8.9); NEUTROPHILS % (AUTO) 76.1 % (43.0-81.0); PLATELET COUNT (AUTO) 208 K/uL (150-450); RED BLOOD CELL COUNT(AUTO) 4.27 MIL/uL (4.0-5.2); WHITE BLOOD COUNT (AUTO) 6.1 K/uL (4.3-11.0)
[2021-05-23 15:16] LABS: CALCIUM, SERUM 8.2 mg/dL (8.5-10.1); CARBON DIOXIDE 22 mmol/L (21-32); CHLORIDE 100 mmol/L (98-107); CREATININE 0.5 mg/dL (0.6-1.3); GLUCOSE 128 mg/dL (74-106); SODIUM SERUM 134 mmol/L (136-145); UREA NITROGEN, BLOOD 6 mg/dL (7-18)
[2021-05-23 15:58] VITALS: BP 141/74
--- NOTE | 2021-05-23 18:38 | NUR ---
RN CLOSING NOTES PT IN BED, MUMBLING TO SEOLF, ORIENTED TO PERSON ONLY. NO S/S OF DISTRESS. ON ROOM AIR, TOLERATING WELL. IV ACCESS SIDDHARTHA MIDLINE - D5 1/2NS X 75 CC/HR, INFUSING WELL, NO S/SX OF INFILTRATION NOTED. ENCOURAGE INTAKE. PT HARD STICK. LAB FINALLY OBTAINED BLOOD THIS AFTERNOON. POTASSIUM AT 3.0. CALLED DR KIM. SAFETY MEASURES IN PLACE: BED AT LOWEST LOCKED POSITION, SIDE RAILS UP X2, CALL RILEY WITHIN REACH. WILL CONTINUE TO MONITOR / ASSIST
[2021-05-23] MEDS ORDERED: POTASSIUM CHLORIDE 10 MEQ/50 ML PREMIXED IVPB FOR PERIPHERAL LINE IV ONE (19:00)
--- NOTE | 2021-05-23 19:30 | NUR ---
MS RN OPENING NOTES RECEIVED PT AWAKE IN BED, MUMBLING TO SELF. A/O X1. PT STABLE ON ROOM AIR. NO SOB OR S/S OF RESPIRATORY DISTRESS NOTED. IV ACCESS SIDDHARTHA MIDLINE, INTACT AND PATENT, RUNNING D5 1/2NS @ 75 CC/HR. SAFETY PRECAUTIONS IN PLACE. BED IN LOWEST LOCKED POSITION, HOB ELEVATED, SIDE RAILS UP X2, AND CALL LIGHT AND TABLE WITHIN REACH. WILL CONTINUE WITH PLAN OF CARE.
[2021-05-23 20:00] VITALS: BP 125/74
[2021-05-23] MEDS: MIRTAZAPINE 15 MG TABLET PO SCH (21:42)
--- NOTE | 2021-05-24 06:34 | NUR ---
MS RN CLOSING NOTES PT AWAKE IN BED, MUMBLING TO SELF. A/O X1. PT STABLE ON ROOM AIR. NO SOB OR S/S OF RESPIRATORY DISTRESS NOTED. IV ACCESS SIDDHARTHA MIDLINE, INTACT AND PATENT, RUNNING D5 1/2NS @ 75 CC/HR. ALL NEEDS MET AT THIS TIME. ALL DUE MEDS GIVEN ORDERED. SAFETY PRECAUTIONS IN PLACE AT ALL TIMES. BED IN LOWEST LOCKED POSITION, HOB ELEVATED, SIDE RAILS UP X2, AND CALL LIGHT AND TABLE WITHIN REACH. WILL ENDORSE TO ONCOMING NURSE FOR RAFAEL.
--- NOTE | 2021-05-24 07:30 | NUR ---
MS RN OPENING NOTES RECEIVED PATIENT SLEEPS IN BED. A/O X1. OPENS EYES UPON CALLING HER NAME. ON ROOM AIR. NO SOB OR S/S OF RESPIRATORY DISTRESS NOTED. IV ACCESS SIDDHARTHA MIDLINE, INTACT AND PATENT, RUNNING D5 1/2NS @ 75 CC/HR. SAFETY PRECAUTIONS IN PLACE. BED IN LOWEST LOCKED POSITION, HOB ELEVATED, SIDE RAILS UP X2, AND CALL LIGHT AND TABLE WITHIN REACH. WILL CONTINUE TO MONITOR.
[2021-05-24] MEDS: PANTOPRAZOLE 40 MG TABLET.DR PO SCH (07:42)
[2021-05-24 08:00] VITALS: BP 107/56
[2021-05-24] MEDS: ENSURE ENLIVE 237 ML LIQUID (VANILLA) PO SCH ×2 (08:06→16:55)
[2021-05-24] MEDS: BENZTROPINE MESYLATE (1 MG) 1 MG TABLET PO SCH ×2 (09:00→16:55)
[2021-05-24] MEDS: risperiDONE 0.25 MG TABLET PO SCH ×3 (09:00→16:55)
--- NOTE | 2021-05-24 09:26 | NUR ---
RN NOTES PATIENT REFUSED 0900 AM MEDS AND BREAKFAST. OFFERED 4 TIMES AND EXPLAINED TO THE PATIENT, PATIENT STILL REFUSING. SHE STATES " NO " STRONGLY.
[2021-05-24 11:23] LABS: BASOPHILS % (AUTO) 0.3 % (0.0-2.0); EOSINOPHILS % (AUTO) 5.4 % (0.0-6.0); HEMATOCRIT 35 % (33-45); HEMOGLOBIN 11.7 g/dL (11.5-14.8); LYMPHOCYTES # (AUTO) 1.3 K/uL (0.8-4.8); LYMPHOCYTES % (AUTO) 23.1 % (20.0-44.0); MEAN CORPUSCULAR HGB CONC 34 g/dl (31.0-36.0); MEAN CORPUSCULAR VOLUME 82 fL (82-100); MONOCYTES # (AUTO) 0.3 K/uL (0.1-1.30); MONOCYTES % (AUTO) 5.7 % (2.0-12.0); NEUTROPHILS # (AUTO) 3.6 K/uL (1.8-8.9); NEUTROPHILS % (AUTO) 65.5 % (43.0-81.0); PLATELET COUNT (AUTO) 204 K/uL (150-450); RED BLOOD CELL COUNT(AUTO) 4.23 MIL/uL (4.0-5.2); WHITE BLOOD COUNT (AUTO) 5.6 K/uL (4.3-11.0)
[2021-05-24 11:33] LABS: CALCIUM, SERUM 8.4 mg/dL (8.5-10.1); CARBON DIOXIDE 25 mmol/L (21-32); CHLORIDE 101 mmol/L (98-107); CREATININE 0.5 mg/dL (0.6-1.3); GLUCOSE 155 mg/dL (74-106); POTASSIUM 2.9 mmol/L (3.5-5.1); SODIUM SERUM 135 mmol/L (136-145); UREA NITROGEN, BLOOD 3 mg/dL (7-18)
[2021-05-24] MEDS: IV D5/0.45 NACL 1,000 ML IV SCH (11:58)
--- NOTE | 2021-05-24 12:30 | NUR ---
RN NOTES INFORMED DR. KIM AT 1223 PM FOR THE PATIENT CONDITION AND LAB RESULTS OF POTASSIUM 2.9 , SODIUM 135, BUN 3 AND CREATININE 0.5. NO NEW ORDERS WAS GIVEN.
[2021-05-24 16:00] VITALS: BP 115/73
--- NOTE | 2021-05-24 17:30 | NUR ---
RN NOTES PATIENT REFUSING 1700 MEDS AND DINNER. OFFERED 3 TIMES STILL REFUSING.
--- NOTE | 2021-05-24 18:51 | NUR ---
MS RN CLOSING NOTES PATIENT SLEEPS IN BED. A/O X1. OPENS EYES UPON CALLING HER NAME. ON ROOM AIR. NO SOB OR S/S OF RESPIRATORY DISTRESS NOTED. IV ACCESS SIDDHARTHA MIDLINE, INTACT AND PATENT, RUNNING D5 1/2NS @ 75 CC/HR. PATIENT REFUSED ALL MEDICATIONS, BREAKFAST, LUNCH AND DINNER. DR KIM MADE AWARE OF THE PATIENT CONDITION AND LAB RESULTS. SAFETY PRECAUTIONS IN PLACE. BED IN LOWEST LOCKED POSITION, HOB ELEVATED, SIDE RAILS UP X2, AND CALL LIGHT AND TABLE WITHIN REACH. WILL ENDORSE FOR RAFAEL..
[2021-05-24 20:00] VITALS: BP 123/72
--- NOTE | 2021-05-24 20:29 | NUR ---
RN NOTE PT POTASSIUM 2.9. SOUND ASSISTANT PHYSICIAN, DR MARTIN, INFORMED OF LAB VALUES. NEW ORDERS NOTED AND CARRIED OUT. WILL CONTINUE WITH PLAN OF CARE.
[2021-05-24] MEDS ORDERED: POTASSIUM CHLORIDE 10 MEQ/50 ML PREMIXED IVPB FOR PERIPHERAL LINE IV ONE (20:30)
[2021-05-24] MEDS: POTASSIUM CL. PREMIX PERIPHER. 50 ML IV SCH ×4 (20:43→23:46)
[2021-05-24] MEDS: MIRTAZAPINE 15 MG TABLET PO SCH (21:46)
[2021-05-24 23:27] VITALS: BP 132/72
[2021-05-25] MEDS: IV D5/0.45 NACL 1,000 ML IV SCH ×2 (00:30→14:25)
[2021-05-25] MEDS: POTASSIUM CL. PREMIX PERIPHER. 50 ML IV SCH ×4 (00:46→03:47)
[2021-05-25 07:17] LABS: CALCIUM, SERUM 8.7 mg/dL (8.5-10.1); CARBON DIOXIDE 25 mmol/L (21-32); CHLORIDE 101 mmol/L (98-107); CREATININE 0.5 mg/dL (0.6-1.3); GLUCOSE 123 mg/dL (74-106); POTASSIUM 3.9 mmol/L (3.5-5.1); SODIUM SERUM 135 mmol/L (136-145); UREA NITROGEN, BLOOD 2 mg/dL (7-18)
[2021-05-25] MEDS: PANTOPRAZOLE 40 MG TABLET.DR PO SCH (07:30)
--- NOTE | 2021-05-25 07:50 | NUR ---
MS/RN OPENING NOTES RECEIVED PT AWAKE IN BED, MUMBLING TO SELF. A/O X1. PT STABLE ON ROOM AIR. NO SOB OR S/S OF RESPIRATORY DISTRESS NOTED. IV ACCESS SIDDHARTHA MIDLINE, INTACT AND PATENT, RUNNING D5 1/2NS @ 75 CC/HR. SAFETY PRECAUTIONS IN PLACE: BED IN LOWEST LOCKED POSITION, HOB ELEVATED, SIDE RAILS UP X2, AND CALL LIGHT AND TABLE WITHIN REACH. WILL CONTINUE TO MONITOR
[2021-05-25 08:00] VITALS: BP 132/77
[2021-05-25 08:10] LABS: BASOPHILS % (AUTO) 0.2 % (0.0-2.0); HEMATOCRIT 35 % (33-45); HEMOGLOBIN 11.8 g/dL (11.5-14.8); LYMPHOCYTES % (AUTO) 15.9 % (20.0-44.0); MEAN CORPUSCULAR HGB CONC 34 g/dl (31.0-36.0); MEAN CORPUSCULAR VOLUME 81 fL (82-100); MONOCYTES # (AUTO) 0.3 K/uL (0.1-1.30); MONOCYTES % (AUTO) 4.7 % (2.0-12.0); NEUTROPHILS # (AUTO) 4.8 K/uL (1.8-8.9); NEUTROPHILS % (AUTO) 76.2 % (43.0-81.0); PLATELET COUNT (AUTO) 212 K/uL (150-450); RED BLOOD CELL COUNT(AUTO) 4.27 MIL/uL (4.0-5.2); WHITE BLOOD COUNT (AUTO) 6.3 K/uL (4.3-11.0)
[2021-05-25] MEDS: ENSURE ENLIVE 237 ML LIQUID (VANILLA) PO SCH ×2 (08:13→17:00)
[2021-05-25] MEDS: risperiDONE 0.25 MG TABLET PO SCH ×5 (08:43→17:00)
[2021-05-25] MEDS: BENZTROPINE MESYLATE (1 MG) 1 MG TABLET PO SCH ×3 (08:43→17:00)
[2021-05-25 16:00] VITALS: BP 123/74
--- NOTE | 2021-05-25 20:03 | NUR ---
MS RN OPENING NOTE PATIENT IS RECEIVED ASLEEP IN BED. A/OX1. NO S/S OF DISTRESS, BREATHING UNLABORED ON RM AIR. SIDDHARTHA MIDLINE INTACT AND PATENT W/ D5-1/2NS 75ML/HR. SAFETY MEASURES IN PLACE: BED AT LOWEST POSITION, RAILS UP X3, CALL RILEY WITHIN REACH. WILL CONTINUE TO MONITOR PATIENT.
[2021-05-25] MEDS: MIRTAZAPINE 15 MG TABLET PO SCH (21:23)
[2021-05-26] VITALS: BP 105/60
[2021-05-26] MEDS: IV D5/0.45 NACL 1,000 ML IV SCH ×2 (03:15→16:01)
--- NOTE | 2021-05-26 06:57 | NUR ---
MS RN CLOSING NOTE PATIENT ASLEEP IN BED. A/OX1. NO S/S OF DISTRESS, BREATHING UNLABORED ON RM AIR. SIDDHARTHA MIDLINE INTACT AND PATENT W/ D5-1/2NS 75ML/HR. SAFETY MEASURES IN PLACE: BED AT LOWEST POSITION, RAILS UP X3, CALL RILEY WITHIN REACH. WILL ENDORSE TO NEXT SHIFT FOR RAFAEL.
[2021-05-26 07:09] LABS: BASOPHILS % (AUTO) 0.3 % (0.0-2.0); EOSINOPHILS % (AUTO) 4.6 % (0.0-6.0); HEMATOCRIT 34 % (33-45); HEMOGLOBIN 11.8 g/dL (11.5-14.8); LYMPHOCYTES # (AUTO) 1.3 K/uL (0.8-4.8); LYMPHOCYTES % (AUTO) 27.1 % (20.0-44.0); MEAN CORPUSCULAR HGB CONC 34 g/dl (31.0-36.0); MEAN CORPUSCULAR VOLUME 81 fL (82-100); MONOCYTES # (AUTO) 0.3 K/uL (0.1-1.30); MONOCYTES % (AUTO) 6.5 % (2.0-12.0); NEUTROPHILS % (AUTO) 61.5 % (43.0-81.0); PLATELET COUNT (AUTO) 198 K/uL (150-450); RED BLOOD CELL COUNT(AUTO) 4.23 MIL/uL (4.0-5.2); WHITE BLOOD COUNT (AUTO) 4.8 K/uL (4.3-11.0)
[2021-05-26 07:21] LABS: CALCIUM, SERUM 8.7 mg/dL (8.5-10.1); CREATININE 0.6 mg/dL (0.6-1.3); MAGNESIUM 1.5 mg/dL (1.8-2.4); PHOSPHORUS 2.6 mg/dL (2.5-4.9)
[2021-05-26] MEDS: PANTOPRAZOLE 40 MG TABLET.DR PO SCH (07:30)
[2021-05-26 07:54] LABS: POTASSIUM 2.8 mmol/L (3.5-5.1)
[2021-05-26] MEDS: ENSURE ENLIVE 237 ML LIQUID (VANILLA) PO SCH ×2 (08:00→17:00)
--- NOTE | 2021-05-26 08:00 | NUR ---
MS/RN OPENING NOTES RECEIVED PT AWAKE IN BED, A/O TO SELF. PT STABLE ON ROOM AIR. NO SOB OR S/S OF RESPIRATORY DISTRESS NOTED. IV ACCESS SIDDHARTHA MIDLINE, INTACT AND PATENT, RUNNING D5 1/2NS @ 75 CC/HR. SAFETY PRECAUTIONS IN PLACED: BED IN LOWEST LOCKED POSITION, HOB ELEVATED, SIDE RAILS UP X2, AND CALL LIGHT AND TABLE WITHIN REACH. WILL CONTINUE WITH THE PLAN OF CARE.
[2021-05-26 08:21] VITALS: BP 107/56
[2021-05-26] MEDS: risperiDONE 0.25 MG TABLET PO SCH (09:00)
[2021-05-26] MEDS: BENZTROPINE MESYLATE (1 MG) 1 MG TABLET PO SCH ×2 (09:00→17:00)
[2021-05-26] MEDS: Magnesium 1GM/D5W 100ML PREMIX 100 ML IV SCH ×2 (09:31→10:51)
[2021-05-26] MEDS: risperiDONE-M 0.5 MG TAB.RAPDIS PO SCH ×2 (10:30→17:00)
[2021-05-26] MEDS: POTASSIUM CL. PREMIX PERIPHER. 50 ML IV SCH ×6 (12:27→17:55)
--- NOTE | 2021-05-26 14:43 | NUR ---
ART FROM CRISIS TEAM CAME AND EVALUATE PATIENT. PUT PATIENT ON 5150 HOLD. 72 HRS HOLD. WILL PROVIDE SITTER TO MONITOR PATIENT AT BEDSIDE.
--- NOTE | 2021-05-26 19:20 | NUR ---
MS/RN CLOSING NOTES PT AWAKE IN BED, A/O TO SELF. PT STABLE ON ROOM AIR. NO SOB OR S/S OF RESPIRATORY DISTRESS NOTED. IV ACCESS SIDDHARTHA MIDLINE, INTACT AND PATENT, RUNNING D5 1/2NS @ 75 CC/HR. PATIENT CONTINUES TO REFUSED ALL PO MEDS AND PO INTAKE. DR. RED AND DR. REIS IS AWARE. PATIENT IS NOW ON 5150 HOLD. ALL NEEDS MET. SAFETY PRECAUTIONS IN PLACED: BED IN LOWEST LOCKED POSITION, HOB ELEVATED, SIDE RAILS UP X2, AND CALL LIGHT AND TABLE WITHIN REACH. WILL ENDORSE TO THE NEXT SHIFT FOR RAFAEL.
--- NOTE | 2021-05-26 19:21 | NUR ---
MS RN OPENING NOTE PATIENT ASLEEP IN BED. A/OX1. NO S/S OF DISTRESS; BREATHING UNLABORED ON RM AIR. SIDDHARTHA MIDLINE INTACT AND PATENT W/ D5-1/2NS 75ML/HR. SAFETY MEASURES IN PLACE: BED AT LOWEST POSITION, RAILS UP X3, CALL RILEY WITHIN REACH. WILL CONTINUE TO MONITOR PATIENT.
[2021-05-26 20:00] VITALS: BP 129/61
[2021-05-26] MEDS: MIRTAZAPINE SOLUTAB 15 MG/UDTABLET TAB.RAPDIS PO SCH (21:16)
[2021-05-27] MEDS: IV D5/0.45 NACL 1,000 ML IV SCH (05:10)
--- NOTE | 2021-05-27 06:51 | NUR ---
MS RN CLOSING NOTES PATIENT IS AWAKE IN BED. A/OX1. NO S/S OF DISTRESS, BREATHING UNLABORED ON RM AIR. SIDDHARTHA MIDLINE INTACT AND PATENT W/ D5-1/2NS 75ML/HR. SAFETY MEASURES IN PLACE: BED AT LOWEST POSITION, RAILS UP X3, CALL RILEY WITHIN REACH. WILL ENDORSE TO NEXT SHIFT FOR RAFAEL.
[2021-05-27 07:25] LABS: BASOPHILS % (AUTO) 0.6 % (0.0-2.0); EOSINOPHILS % (AUTO) 4.2 % (0.0-6.0); HEMATOCRIT 35 % (33-45); HEMOGLOBIN 11.9 g/dL (11.5-14.8); LYMPHOCYTES # (AUTO) 1.4 K/uL (0.8-4.8); LYMPHOCYTES % (AUTO) 26.3 % (20.0-44.0); MEAN CORPUSCULAR HGB CONC 34 g/dl (31.0-36.0); MEAN CORPUSCULAR VOLUME 82 fL (82-100); MONOCYTES # (AUTO) 0.4 K/uL (0.1-1.30); MONOCYTES % (AUTO) 7.9 % (2.0-12.0); NEUTROPHILS # (AUTO) 3.3 K/uL (1.8-8.9); PLATELET COUNT (AUTO) 202 K/uL (150-450); RED BLOOD CELL COUNT(AUTO) 4.31 MIL/uL (4.0-5.2); WHITE BLOOD COUNT (AUTO) 5.4 K/uL (4.3-11.0)
--- NOTE | 2021-05-27 07:26 | NUR ---
RN OPENING NOTES RECEIVED PATIENT ASLEEP IN BED, EASILY AROUSED. ALERT TO SELF. ON ROOM AIR, TOLERATING WELL, NO SOB NOTED, BREATHING EVEN AND UNLABORED. NOTED WITH IV ACCESS SIDDHARTHA MIDLINE, INTACT AND PATENT, RUNNING D5 1/2NS @ 75 CC/HR. SAFETY MEASURES IN PLACE, BED IN LOWEST AND LOCKED POSITION, HOB ELEVATED, SIDE RAILS UP X2, AND CALL LIGHT AND TABLE WITHIN REACH. SITTER AT BEDSIDE. WILL CONTINUE TO MONITOR PATIENT.
[2021-05-27] MEDS: PANTOPRAZOLE 40 MG TABLET.DR PO SCH (07:30)
[2021-05-27 07:55] LABS: CALCIUM, SERUM 9.1 mg/dL (8.5-10.1); CREATININE 0.6 mg/dL (0.6-1.3); MAGNESIUM 2.4 mg/dL (1.8-2.4); PHOSPHORUS 3.6 mg/dL (2.5-4.9); POTASSIUM 4.2 mmol/L (3.5-5.1)
[2021-05-27] MEDS: ENSURE ENLIVE 237 ML LIQUID (VANILLA) PO SCH ×2 (08:00→17:00)
[2021-05-27] MEDS: BENZTROPINE MESYLATE (1 MG) 1 MG TABLET PO SCH ×2 (08:55→17:00)
[2021-05-27] MEDS: risperiDONE-M 0.5 MG TAB.RAPDIS PO SCH ×2 (08:55→17:00)
[2021-05-27] MEDS: IV D5/0.45 NACL 1,000 ML IV PRN ×2 (09:00→18:42)
--- NOTE | 2021-05-27 18:52 | NUR ---
RN CLOSING NOTES PATIENT RESTING IN BED. REMAINS ON ROOM AIR, TOLERATING WELL, NO SOB NOTED, BREATHING EVEN AND UNLABORED. IV ACCESS ON SIDDHARTHA MIDLINE, INTACT AND PATENT, RUNNING D5 1/2NS @ 75 CC/HR. PATIENT REFUSED BREAKFAST AND DINNER, ATE 50% OF LUNCH. REFUSED ALL MEDICATIONS IN SPITE EXPLANATION OF RISKS AND BENEFITS. SAFETY MEASURES MAINTAINED, BED IN LOWEST AND LOCKED POSITION, HOB ELEVATED, SIDE RAILS UP X2, AND CALL LIGHT AND TABLE WITHIN REACH. SITTER AT BEDSIDE. WILL ENDORSE TO NEXT SHIFT FOR RAFAEL.
--- NOTE | 2021-05-27 19:27 | NUR ---
MS RN OPENING NOTES: RECEIVED PATIENT SLEEP IN BED COMFORTABLY, AROUSABLE TO VERBAL STIMULI, BED IN LOW POSITION CALL LIGHTS WITHIN REACH, NO COMPLAIN OF PAIN AND DISCOMFORT AT THIS TIME. ON ROOM AIR SATURATING WELL, PATIENT IS A/OX1 WITH 1:1 SITTER, WITH IV LINE AT SIDDHARTHA ML WITH ONGOING D5NS@75ML PER HOUR INFUSING WELL, PATIENT KEPT CLEAN AND DRY ALL NEEDS MET WILL CONTINUE TO MONITOR.
[2021-05-27 21:00] VITALS: BP 106/72
[2021-05-27] MEDS: MIRTAZAPINE SOLUTAB 15 MG/UDTABLET TAB.RAPDIS PO SCH (22:00)
--- NOTE | 2021-05-27 22:10 | NUR ---
RN NOTES: PATIENT REFUSED THE 0 ROTINE MEDICATION, (MIRTAZAPINE) OFFERED MEDICATION 3X BUT PATIENT KEPT ON REFUSING AND STARTED TO BECOME AGITATED
--- NOTE | 2021-05-28 06:00 | NUR ---
RN NOTES: PATIENT REFUSED TO HAVE BLOOD DRAWN, ASKED THE COLOR MAKER TO COME BACK FOR 2ND TRY LATER IN AM.
--- NOTE | 2021-05-28 06:24 | NUR ---
MS RN CLOSING NOTE: PATIENT SLEEP IN BED COMFORTABLY, BED IN LOW POSITION, CALL LIGHTS WITHIN REACH, NO COMPLAIN OF PAIN AND DISCOMFORT AT THIS TIME, ON ROOM AIR SATURATING WELL, WITH IV LINE AT SIDDHARTHA ML WITH ONGOING D5 1/2 NSS@75 ML/HR INFUSING WELL, PATIENT IS NONE COMPLIANT OF MEDICATION, WITH :1 SITTER, PATIENT KEPT CLEAN AND DRY ALL NEEDS MET ENDORSE TO INCOMING SHIFT
--- NOTE | 2021-05-28 07:22 | NUR ---
RN OPENING NOTE PT ASLEEP IN BED, AWAKENED EASILY, BED IN LOW POSITION CALL LIGHTS WITHIN REACH, NO COMPLAIN OF PAIN AND DISCOMFORT AT THIS TIME. ON ROOM AIR SATURATING WELL, WITH IV LINE AT SIDDHARTHA ML WITH ONGOING D5NS@75ML PER HOUR INFUSING WELL, PATIENT KEPT CLEAN AND DRY ALL NEEDS MET WILL CONTINUE TO ASSIST / MONITOR.
[2021-05-28] MEDS: PANTOPRAZOLE 40 MG TABLET.DR PO SCH (07:30)
[2021-05-28 08:00] VITALS: BP 124/74
[2021-05-28] MEDS: ENSURE ENLIVE 237 ML LIQUID (VANILLA) PO SCH ×2 (08:00→16:46)
[2021-05-28] MEDS: IV D5/0.45 NACL 1,000 ML IV PRN ×2 (08:20→23:24)
[2021-05-28] MEDS: BENZTROPINE MESYLATE (1 MG) 1 MG TABLET PO SCH ×2 (09:00→16:46)
[2021-05-28] MEDS: risperiDONE-M 0.5 MG TAB.RAPDIS PO SCH ×2 (09:00→16:46)
[2021-05-28 09:46] LABS: BASOPHILS % (AUTO) 0.3 % (0.0-2.0); EOSINOPHILS % (AUTO) 3.6 % (0.0-6.0); HEMATOCRIT 36 % (33-45); LYMPHOCYTES # (AUTO) 1.2 K/uL (0.8-4.8); LYMPHOCYTES % (AUTO) 20.5 % (20.0-44.0); MEAN CORPUSCULAR HGB CONC 34 g/dl (31.0-36.0); MEAN CORPUSCULAR VOLUME 82 fL (82-100); MONOCYTES # (AUTO) 0.5 K/uL (0.1-1.30); MONOCYTES % (AUTO) 8.8 % (2.0-12.0); NEUTROPHILS # (AUTO) 3.8 K/uL (1.8-8.9); NEUTROPHILS % (AUTO) 66.8 % (43.0-81.0); PLATELET COUNT (AUTO) 199 K/uL (150-450); RED BLOOD CELL COUNT(AUTO) 4.33 MIL/uL (4.0-5.2); WHITE BLOOD COUNT (AUTO) 5.7 K/uL (4.3-11.0)
[2021-05-28 10:06] LABS: CALCIUM, SERUM 8.7 mg/dL (8.5-10.1); CARBON DIOXIDE 26 mmol/L (21-32); CHLORIDE 102 mmol/L (98-107); CREATININE 0.4 mg/dL (0.6-1.3); GLUCOSE 147 mg/dL (74-106); MAGNESIUM 1.9 mg/dL (1.8-2.4); PHOSPHORUS 3.7 mg/dL (2.5-4.9); SODIUM SERUM 134 mmol/L (136-145); UREA NITROGEN, BLOOD 4 mg/dL (7-18)
--- NOTE | 2021-05-28 11:06 | NUR ---
RN NOTE- K-3.0. DR REIS ORDERED KCL 40 MEQ IV
[2021-05-28] MEDS ORDERED: POTASSIUM CL. PREMIX PERIPHER. 50 ML IV SCH (11:30)
--- NOTE | 2021-05-28 12:12 | NUR ---
RN NOTE- K HURTING PT ARM. DR REIS AT UNIT. PT STATED SHE'D TAKE PO KCL IF GIVEN. ORDER PLACED
[2021-05-28] MEDS ORDERED: POTASSIUM CHLORIDE 10 MEQ TABLET.SA PO ONE ×2 (12:30→13:00)
--- NOTE | 2021-05-28 12:48 | NUR ---
RN NOTE- WENT TO PULL KCL 40 MEQ FOR PO DOSE. PULLED FOUR- 20 MEQ TABS INSTEAD OF FOUR - 10 MEQ TABS. CALLED PHARMACY. RETURNED FOUR - 20 MEQ TABS AND HAD THEM PUT ORDER IN AGAIN. PT RECEIVED FOUR 10 MEQ TABS PO KCL AT THIS TIME.
[2021-05-28 16:00] VITALS: BP 140/78
--- NOTE | 2021-05-28 18:56 | NUR ---
RN CLOSING NOTE PT CONFUSED, ASLEEP IN BED, AWAKENED EASILY, BED IN LOW POSITION CALL LIGHTS WITHIN REACH, NO COMPLAIN OF PAIN AND DISCOMFORT AT THIS TIME. ON ROOM AIR SATURATING WELL, WITH IV LINE AT SIDDHARTHA ML WITH ONGOING D5NS@75ML PER HOUR INFUSING WELL, KCL SUPPLEMENTATION GIVEN, PATIENT KEPT CLEAN AND DRY ALL NEEDS MET WILL CONTINUE TO ASSIST / MONITOR.
--- NOTE | 2021-05-28 19:35 | NUR ---
MS RN OPENING NOTES RECEIVED PATIENT SLEEPING IN BED EASILY AROUSABLE. A/O X1. PATIENT WITH REGULAR AND UNLABORED BREATHING ON ROOM AIR TOLERATED WELL. NO SIGNS AND SYMPTOMS OF DISTRESS NOTED. NO COMPLAINS OF PAIN OR DISCOMFORT AT THIS TIME. IV ACCESS SIDDHARTHA MIDLINE INFUSING D5 1/2NS @ 75 ML/HR. IV ACCESS PATENT AND INTACT. SAFETY PRECAUTIONS ENFORCED WITH BED LOCKED AND AT LOWEST POSITION. CALL LIGHT WITHIN REACH AT ALL TIMES. WILL CONTINUE TO MONITOR PATIENT.
[2021-05-28 20:00] VITALS: BP 118/72
[2021-05-28] MEDS: MIRTAZAPINE SOLUTAB 15 MG/UDTABLET TAB.RAPDIS PO SCH (22:00)
--- NOTE | 2021-05-28 22:00 | NUR ---
MS RN NOTES PATIENT REFUSED MEDICATION. EXPLAINED RISKS AND BENEFITS. PATIENT STILL REFUSED. WILL CONTINUE TO MONITOR PATIENT.
[2021-05-29 06:46] LABS: BASOPHILS % (AUTO) 0.5 % (0.0-2.0); EOSINOPHILS % (AUTO) 5.4 % (0.0-6.0); HEMATOCRIT 35 % (33-45); HEMOGLOBIN 11.6 g/dL (11.5-14.8); LYMPHOCYTES # (AUTO) 1.3 K/uL (0.8-4.8); LYMPHOCYTES % (AUTO) 27.3 % (20.0-44.0); MEAN CORPUSCULAR HGB CONC 34 g/dl (31.0-36.0); MEAN CORPUSCULAR VOLUME 83 fL (82-100); MONOCYTES # (AUTO) 0.6 K/uL (0.1-1.30); MONOCYTES % (AUTO) 11.3 % (2.0-12.0); NEUTROPHILS # (AUTO) 2.7 K/uL (1.8-8.9); NEUTROPHILS % (AUTO) 55.5 % (43.0-81.0); PLATELET COUNT (AUTO) 202 K/uL (150-450); RED BLOOD CELL COUNT(AUTO) 4.18 MIL/uL (4.0-5.2); WHITE BLOOD COUNT (AUTO) 4.9 K/uL (4.3-11.0)
--- NOTE | 2021-05-29 06:47 | NUR ---
MS RN CLOSING NOTES PATIENT STILL SLEEPING IN BED EASILY AROUSABLE. A/O X1. PATIENT WITH REGULAR AND UNLABORED BREATHING ON ROOM AIR TOLERATED WELL. NO SIGNS AND SYMPTOMS OF DISTRESS NOTED. NO COMPLAINS OF PAIN OR DISCOMFORT AT THIS TIME. IV ACCESS SIDDHARTHA MIDLINE INFUSING D5 1/2NS @ 75 ML/HR. IV ACCESS PATENT AND INTACT. SAFETY PRECAUTIONS ENFORCED WITH BED LOCKED AND AT LOWEST POSITION. CALL LIGHT WITHIN REACH AT ALL TIMES. WILL ENDORSE CONTINUITY OF CARE TO DAY SHIFT NURSE.
--- NOTE | 2021-05-29 07:17 | NUR ---
RN OPENING NOTE PT ASLEEP IN BED, AWAKENED EASILY, BED IN LOW POSITION CALL LIGHTS WITHIN REACH, NO COMPLAIN OF PAIN AND DISCOMFORT AT THIS TIME. ON ROOM AIR SATURATING WELL, WITH IV LINE AT SIDDHARTHA ML WITH ONGOING D5NS@75 / HR. , PATIENT KEPT CLEAN AND DRY ALL NEEDS MET WILL CONTINUE TO ASSIST / MONITOR.
[2021-05-29] MEDS: PANTOPRAZOLE 40 MG TABLET.DR PO SCH (07:30)
[2021-05-29] MEDS: ENSURE ENLIVE 237 ML LIQUID (VANILLA) PO SCH ×2 (08:00→16:30)
[2021-05-29] MEDS: risperiDONE-M 0.5 MG TAB.RAPDIS PO SCH ×2 (08:06→16:30)
[2021-05-29] MEDS: BENZTROPINE MESYLATE (1 MG) 1 MG TABLET PO SCH ×2 (08:06→16:30)
[2021-05-29 08:42] LABS: CALCIUM, SERUM 8.7 mg/dL (8.5-10.1); CARBON DIOXIDE 26 mmol/L (21-32); CHLORIDE 102 mmol/L (98-107); CREATININE 0.5 mg/dL (0.6-1.3); GLUCOSE 119 mg/dL (74-106); MAGNESIUM 2.3 mg/dL (1.8-2.4); POTASSIUM 3.2 mmol/L (3.5-5.1); SODIUM SERUM 136 mmol/L (136-145); UREA NITROGEN, BLOOD 3 mg/dL (7-18)
[2021-05-29] MEDS ORDERED: POTASSIUM CL. PREMIX PERIPHER. 50 ML IV SCH (10:00)
[2021-05-29] MEDS ORDERED: POTASSIUM CHLORIDE 20 MEQ TAB.PRT.SR PO ONE (10:30)
[2021-05-29] MEDS: IV D5/0.45 NACL 1,000 ML IV PRN (12:45)
--- NOTE | 2021-05-29 16:55 | NUR ---
No responsible republican: requested by YENI Hernandez called [facility] and asked regarding responsible republican. Facility reported that pt. made all of her own medical decisions and there was no responsible republican noted for this pt. GALINA notified Dr. De La Rosa.
--- NOTE | 2021-05-29 19:02 | NUR ---
RN CLOSING NOTE PT IN BED, UNCHANGED, BED IN LOW POSITION CALL LIGHTS WITHIN REACH, NO COMPLAIN OF PAIN AND DISCOMFORT AT THIS TIME. ON ROOM AIR SATURATING WELL, WITH IV LINE AT SIDDHARTHA ML WITH ONGOING D5NS@75 / HR. , PATIENT KEPT CLEAN AND DRY ALL NEEDS MET WILL CONTINUE TO ASSIST / MONITOR. DR RED FILED REISE PETITION. MAY TRANSFER TO GPS
--- NOTE | 2021-05-29 20:43 | NUR ---
MS RN OPENING NOTES: RECEIVED PATIENT SLEEP IN BED COMFORTABLY, BED IN LOW POSITION, CALL LIGHTS WITHIN REACH, NO COMPLAIN OF PAIN AND DISCOMFORT AT THIS TIME, PATIENT IS A/OX1, WITH HX OF NONE COMPLIANT ON MEDICATION, WITH IV LINE AT SIDDHARTHA ML WITH ONGOING D5 1/2 NSS@75ML PER HOUR INFUSING WELL, PATIENT HAS !:1SITTER ON ROOM AIR SATURATING WELL, PATIENT KEPT CLEAN AND DRY ALL NEEDS MET WILL CONTINUE TO MONITOR.
[2021-05-29] MEDS: MIRTAZAPINE SOLUTAB 15 MG/UDTABLET TAB.RAPDIS PO SCH (22:54)
[2021-05-30 01:06] VITALS: BP 113/76
[2021-05-30] MEDS: IV D5/0.45 NACL 1,000 ML IV PRN ×2 (01:45→14:53)
--- NOTE | 2021-05-30 06:29 | NUR ---
MS RN CLOSING NOTES: PATIENT SLEEP IN BED COMFORTABLY, BED IN LOW POSITION, CALL LIGHTS WITHIN REACH, NO COMPLAIN OF PAIN AND DISCOMFORT AT THIS TIME, WITH 1:1 SITTER AT BEDSIDE, WITH IV LINE AT SIDDHARTHA ML WITH ONGOING D5 1/2 NS@75 ML/HR INFUSING WELL, PATIENT ON REISE PETITION FILED, NONE COMPLIANT WITH MEDICATION MANAGEMENT, ON ROOM AIR SATURATING WELL, PATIENT KEPT CLEAN AND DRY ALL NEEDS MET ENDORSE TO INCOMING SHIFT.
[2021-05-30 06:57] LABS: CALCIUM, SERUM 9.1 mg/dL (8.5-10.1); CARBON DIOXIDE 25 mmol/L (21-32); CHLORIDE 103 mmol/L (98-107); CREATININE 0.4 mg/dL (0.6-1.3); GLUCOSE 111 mg/dL (74-106); MAGNESIUM 2.1 mg/dL (1.8-2.4); PHOSPHORUS 4.3 mg/dL (2.5-4.9); SODIUM SERUM 135 mmol/L (136-145); UREA NITROGEN, BLOOD 4 mg/dL (7-18)
--- NOTE | 2021-05-30 07:30 | NUR ---
MS RN OPENING NOTES RECEIVED PATIENT RESTING ON BED AND A/O X1. ON ROOM AIR TOLERATING WELL. NO SOB NOTED. NOT IN DISTRESS. WITH NO SIGNS OF PAIN VIA FLACC LEVEL OF PAIN. WITH IV ACCESS AT RIGHT UPPER ARM MIDLINE WITH D5 1/2NS AT 75ML/HR INFUSING WELL. SAFETY MEASURES IN PLACED. CALL LIGHT WITHIN REACH. BED ON LOWEST LOCKED POSITION, SIDE RAILS UP X2. WILL CONTINUE TO MONITOR.
[2021-05-30 08:00] VITALS: BP 135/83
[2021-05-30] MEDS: ENSURE ENLIVE 237 ML LIQUID (VANILLA) PO SCH ×3 (08:00→17:00)
[2021-05-30] MEDS: BENZTROPINE MESYLATE (1 MG) 1 MG TABLET PO SCH ×3 (09:00→17:00)
[2021-05-30] MEDS: risperiDONE-M 0.5 MG TAB.RAPDIS PO SCH ×3 (09:00→17:00)
--- NOTE | 2021-05-30 09:00 | NUR ---
RN NOTES PATIENT REFUSED TO TAKE HER BREAKFAST AND HER MORNING MEDS.
[2021-05-30] MEDS: PANTOPRAZOLE 40 MG TABLET.DR PO SCH (09:24)
[2021-05-30] MEDS: MEGESTROL ACETATE 40 MG TABLET PO SCH ×2 (10:30→17:00)
[2021-05-30] MEDS ORDERED: BISACODYL SUPP (10 MG) 10 MG/SUPP.RECT SUPP.RECT RC PRN (11:00)
[2021-05-30 12:00] VITALS: BP 130/81
[2021-05-30 14:51] LABS: BASOPHILS % (AUTO) 0.6 % (0.0-2.0); EOSINOPHILS % (AUTO) 3.8 % (0.0-6.0); HEMATOCRIT 35 % (33-45); HEMOGLOBIN 11.8 g/dL (11.5-14.8); LYMPHOCYTES # (AUTO) 1.2 K/uL (0.8-4.8); LYMPHOCYTES % (AUTO) 24.6 % (20.0-44.0); MEAN CORPUSCULAR HGB CONC 34 g/dl (31.0-36.0); MEAN CORPUSCULAR VOLUME 83 fL (82-100); MONOCYTES # (AUTO) 0.5 K/uL (0.1-1.30); MONOCYTES % (AUTO) 10.6 % (2.0-12.0); NEUTROPHILS # (AUTO) 2.9 K/uL (1.8-8.9); NEUTROPHILS % (AUTO) 60.4 % (43.0-81.0); PLATELET COUNT (AUTO) 205 K/uL (150-450); RED BLOOD CELL COUNT(AUTO) 4.27 MIL/uL (4.0-5.2); WHITE BLOOD COUNT (AUTO) 4.7 K/uL (4.3-11.0)
[2021-05-30 16:00] VITALS: BP 137/84
[2021-05-30] MEDS: DOCUSATE SODIUM 100 MG CAPSULE PO SCH (17:00)
[2021-05-30] MEDS: PSYLLIUM SEED 1 PKT PACKET PO SCH (17:00)
--- NOTE | 2021-05-30 18:32 | NUR ---
MS RN CLOSING NOTES PATIENT RESTING ON BED AND A/O X1. ON ROOM AIR TOLERATING WELL. NO SOB NOTED. NOT IN DISTRESS. WITH NO SIGNS OF PAIN VIA FLACC LEVEL OF PAIN. WITH IV ACCESS AT RIGHT UPPER ARM MIDLINE WITH D5 1/2NS AT 75ML/HR INFUSING WELL. PATIENT WAS ABLE TO EAT 60% OF HER DINNER BUT REFUSED TO TAKE HER MEDS. SAFETY MEASURES IN PLACED. CALL LIGHT WITHIN REACH. BED ON LOWEST LOCKED POSITION, SIDE RAILS UP X2. WILL ENDORSE TO NEXT SHIFT FOR RAFAEL.
--- NOTE | 2021-05-30 19:20 | NUR ---
MS RN OPENING NOTES: RECEIVED PATIENT IN BED, AWAKE, NON VERBAL, IGNORES WHEN CALL HER. NOT INTERESTED IN CONVERSATION. NO S/S OF DISTRESS NOTED. NO COMPLAIN OF PAIN. CALL LIGHT WITHIN REACH. BED IN LOWEST AND LOCKED POSITION. HOB ELEVATED. ON 5250 HOLD, WITH SITTER AT THE BEDSIDE.
[2021-05-30 20:00] VITALS: BP 114/62
[2021-05-30] MEDS: ATORVASTATIN 10 MG TABLET PO SCH ×2 (22:00→22:48)
[2021-05-30] MEDS: MIRTAZAPINE SOLUTAB 15 MG/UDTABLET TAB.RAPDIS PO SCH ×2 (22:00→22:48)
[2021-05-31] MEDS: IV D5/0.45 NACL 1,000 ML IV PRN (04:21)
[2021-05-31] MEDS: PANTOPRAZOLE 40 MG TABLET.DR PO SCH (07:30)
--- NOTE | 2021-05-31 07:30 | NUR ---
MS RN OPENING NOTES RECEIVED PATIENT RESTING ON BED AND A/O X1. PATIENT IS BREATHING EVENLY AND NONLABORED ON ROOM AIR TOLERATING WELL. NO SOB NOTED. NOT IN DISTRESS. WITH NO SIGNS OF PAIN VIA FLACC LEVEL OF PAIN. WITH IV ACCESS AT RIGHT UPPER ARM MIDLINE WITH D5 1/2NS AT 75ML/HR INFUSING WELL. SAFETY MEASURES IN PLACED. CALL LIGHT WITHIN REACH. BED ON LOWEST LOCKED POSITION, SIDE RAILS UP X2. WILL CONTINUE TO MONITOR.
[2021-05-31] MEDS: ENSURE ENLIVE 237 ML LIQUID (VANILLA) PO SCH ×2 (08:00→16:46)
[2021-05-31] MEDS: BENZTROPINE MESYLATE (1 MG) 1 MG TABLET PO SCH ×2 (08:38→16:45)
[2021-05-31] MEDS: DOCUSATE SODIUM 100 MG CAPSULE PO SCH ×2 (08:39→16:46)
[2021-05-31] MEDS: MULTIVIT W/MINERALS 1 TAB TABLET PO SCH (08:39)
[2021-05-31] MEDS: PSYLLIUM SEED 1 PKT PACKET PO SCH ×2 (08:39→16:46)
[2021-05-31] MEDS: MEGESTROL ACETATE 40 MG TABLET PO SCH ×2 (08:39→16:46)
[2021-05-31] MEDS: risperiDONE-M 0.5 MG TAB.RAPDIS PO SCH (08:39)
--- NOTE | 2021-05-31 08:39 | NUR ---
RN NOTES PATIENT REFUSED TO TAKE HER BREAKFAST AND HER MORNING MEDS EXPLAINED RISK AND BENEFITS X2. STILL REFUSED
[2021-05-31] MEDS ORDERED: OLANZAPINE 10 MG VIAL IM PRN (11:30)
--- NOTE | 2021-05-31 18:20 | NUR ---
MS RN CLOSING NOTES PATIENT RESTING ON BED AND A/O X1. PATIENT BREATHING EVENLY AND NONLABORED ON ROOM AIR TOLERATING WELL. NO SOB NOTED. NOT IN DISTRESS. WITH NO SIGNS OF PAIN VIA FLACC LEVEL OF PAIN. WITH IV ACCESS AT RIGHT UPPER ARM MIDLINE WITH D5 1/2NS AT 75ML/HR INFUSING WELL. PATIENT REFUSED MEDICATIONS, MD AWARE, PATIENT WAS RESIED, MUST TAKE ALL ANTIPSYCHOTIC MEDICATIONS. PATIENT WAS ABLE TO EAT 60% OF ALL HER MEALS THROUGHOUT THE DAY. SAFETY MEASURES IN PLACED. CALL LIGHT WITHIN REACH. BED ON LOWEST LOCKED POSITION, SIDE RAILS UP X2. WILL ENDORSE TO ONCOMING SHIFT
--- NOTE | 2021-05-31 19:30 | NUR ---
MS RN OPENING NOTES: RECEIVED PATIENT IN BED, AWAKE, STILL NOT ENGAGING IN THE CONVERSATION. NO S/S OF DISTRESS NOTED. NO COMPLAIN OF PAIN. BED IN LOWEST AND LOCKED POSITION. HOB ELEVATED. WITH SITTER AT THE BEDSIDE.
[2021-05-31 20:39] VITALS: BP 143/91
[2021-05-31] MEDS ORDERED: risperiDONE-M 0.5 MG TAB.RAPDIS PO SCH (21:00)
[2021-05-31] MEDS: ATORVASTATIN 10 MG TABLET PO SCH (22:26)
[2021-05-31] MEDS: MIRTAZAPINE SOLUTAB 15 MG/UDTABLET TAB.RAPDIS PO SCH (22:27)
[2021-06-01] MEDS: IV D5/0.45 NACL 1,000 ML IV PRN (06:13)
[2021-06-01 06:16] VITALS: BP 118/70
[2021-06-01 06:35] LABS: BASOPHILS % (AUTO) 0.5 % (0.0-2.0); EOSINOPHILS % (AUTO) 4.5 % (0.0-6.0); HEMATOCRIT 32 % (33-45); HEMOGLOBIN 10.7 g/dL (11.5-14.8); LYMPHOCYTES # (AUTO) 1.7 K/uL (0.8-4.8); MEAN CORPUSCULAR HGB CONC 33 g/dl (31.0-36.0); MEAN CORPUSCULAR VOLUME 83 fL (82-100); MONOCYTES # (AUTO) 0.5 K/uL (0.1-1.30); MONOCYTES % (AUTO) 11.3 % (2.0-12.0); NEUTROPHILS # (AUTO) 1.7 K/uL (1.8-8.9); NEUTROPHILS % (AUTO) 41.7 % (43.0-81.0); PLATELET COUNT (AUTO) 195 K/uL (150-450); RED BLOOD CELL COUNT(AUTO) 3.86 MIL/uL (4.0-5.2)
[2021-06-01 06:49] LABS: CALCIUM, SERUM 8.6 mg/dL (8.5-10.1); CREATININE 0.6 mg/dL (0.6-1.3); MAGNESIUM 1.9 mg/dL (1.8-2.4); PHOSPHORUS 3.5 mg/dL (2.5-4.9); POTASSIUM 3.4 mmol/L (3.5-5.1)
[2021-06-01] MEDS: PANTOPRAZOLE 40 MG TABLET.DR PO SCH (07:30)
[2021-06-01] MEDS: ENSURE ENLIVE 237 ML LIQUID (VANILLA) PO SCH (08:00)
[2021-06-01] MEDS: DOCUSATE SODIUM 100 MG CAPSULE PO SCH (08:02)
[2021-06-01] MEDS: PSYLLIUM SEED 1 PKT PACKET PO SCH (08:02)
[2021-06-01] MEDS: MEGESTROL ACETATE 40 MG TABLET PO SCH (08:02)
[2021-06-01] MEDS: MULTIVIT W/MINERALS 1 TAB TABLET PO SCH (08:03)
[2021-06-01] MEDS ORDERED: risperiDONE-M 0.5 MG TAB.RAPDIS PO SCH (09:00)
[2021-06-01] MEDS ORDERED: OLANZAPINE 10 MG VIAL IM PRN (09:00)
[2021-06-01] MEDS: BENZTROPINE MESYLATE (1 MG) 1 MG TABLET PO SCH (09:08)
[2021-06-01] MEDS ORDERED: POTASSIUM CHLORIDE 20 MEQ POWDER PACKET PO SCH (11:00)
--- NOTE | 2021-06-01 15:13 | NUR ---
BRIDGE PAINTER HELPER NOTES RECEIVED DISCHARGE ORDER. PATIENT RESTING ON BED AND A/O X1. PATIENT IS BREATHING EVENLY AND NONLABORED ON ROOM AIR TOLERATING WELL. NO SOB NOTED. NOT IN DISTRESS. WITH NO SIGNS OF PAIN VIA FLACC LEVEL OF PAIN. IV ACCESS WAS REMOVED, NO BLEEDING NOTED. NO BELONGINGS, BELONGINGS FORM SIGNED. PATIENT DISCHARGE INSTRUCTIONS WERE GIVEN TO RN BOX TOE CUTTER SYLWIA @ [facility]. PATIENT IS ON 5250 HOLD, POLST, HOLD AND REISED INFORMATION SENT TO GPS. PATIENT WAS BROUGHT TO GPS IN STABLE CONDITION.
[2021-06-01] MEDS ORDERED: BENZ0.5T43 PO (15:14)
[2021-06-01] MEDS ORDERED: MEGE40TA5 PO (15:14)
[2021-06-01] MEDS ORDERED: OLAN5TAB3 IM (15:14)
[2021-06-01] MEDS ORDERED: RISP1TAB97 PO (15:14)
[2021-06-01] MEDS ORDERED: PANT40TA2 PO (15:14)
[2021-06-01] MEDS ORDERED: MIRT-121 PO (15:14)
[2021-06-01] MEDS ORDERED: LACT-246 PO (15:14)
== END 2021-06-01 14:50 | DRG 682 ==
LOC: ER 20:15 → MED 05-21 02:09
PROVIDERS: ADMIT Internal Medicine; ATTEND Nurse Practitioner Family
PROC: 05H933Z Insertion of Infusion Device into Right Brachial Vein, Percutaneous Approach (ICD-10-PCS; principal; 2021-05-23)
DX: N17.0 Acute kidney failure with tubular necrosis (principal); E43 Unspecified severe protein-calorie malnutrition; G93.41 Metabolic encephalopathy; E86.0 Dehydration; F32.A Depression, unspecified; F41.9 Anxiety disorder, unspecified; I10 Essential (primary) hypertension; F25.0 Schizoaffective disorder, bipolar type; Z20.822 Contact with and (suspected) exposure to COVID-19; J44.9 Chronic obstructive pulmonary disease, unspecified; K59.00 Constipation, unspecified; G20 Parkinson's disease; Z79.899 Other long term (current) drug therapy; F29 Unspecified psychosis not due to a substance or known physiological condition; E88.09 Other disorders of plasma-protein metabolism, not elsewhere classified; F60.3 Borderline personality disorder; G31.84 Mild cognitive impairment of uncertain or unknown etiology; K86.89 Other specified diseases of pancreas; R62.7 Adult failure to thrive
CPT/HCPCS: 36410; 36415; 80048-TC; 80061-TC; 80076-TC; 81001; 83690-TC; 83735-TC; 84100-TC; 84484-TC; 85025-TC; 87081-TC; C9803; G0378; J2405; J3475; J3480; J3490; J7030; J7050; Q9967

== ENCOUNTER 2021-06-01 14:12 | Inpatient (IN) | payer MEDICARE, OTHER ==
[~2021-06-01] VITALS: Ht 162.6 cm; Wt 49.4 kg
[~2021-06-01 14:12] MED LIST changes: +ACET-868 PO; +AMIN30LI2 PO; +MAG30ORA PO; -MAGN400O6 PO; +MULT-447 PO; -POLY17PO4 PO; +PSYL3.4P6 PO
--- NOTE | 2021-06-01 14:30 | NUR ---
RN-ADMISSION NOTES ADMITTED 75 Y.O FEMALE PATIENT FROM [facility]. PATIENT IS UNDER THE CARE OF DR. RED ( PSYCHIATRIST) JAE RAMIREZ ( LOSS PREVENTION LEAD) SEEN THE PATIENT IN THE UNIT WITH ORDERS. PATIENT ARRIVED IN THE UNIT VIA HOSPITAL BED ACCOMPANIED BY [facility] STAFF. PATIENT IS AWAKE,A/O X1,GUARDED. UPON FACE TO FACE ASSESSMENT WITH THE PATIENT ,PATIENT IS NONVERBAL REFUSED TO ANSWER QUESTIONS,POOR HISTORIAN UNABLE TO GIVE INFORMATIONS,SOME INFORMATIONS WAS OBTAINED FROM MEDICAL RECORDS. SKIN ASSESSMENT DONE ALSO MRSA SWAB DONE AND SENT TO THE LABS . PATIENT NEEDS ASSIST MAXIMUM ASSIST WITH ADL'S . PNA AND FLU VACCINE INCLUDING COVID VACCINE WAS UNKNOWN NO AVAILABLE RECORDS. PATIENT ON 5250 HOLD FOR GRAVELY DISABLE AND SHE WAS RIESED . PATIENT'S RIGHT BOOKLET WAS GIVEN TO THE PATIENT.NO FAMILY GIVEN TO NOTIFY ON THE ADMISSION.ALL NEEDS ATTENDED AND ANTICIPATED. WILL CONT. MONITORING FOR SAFETY AND BEHAVIOR.
[2021-06-01] MEDS ORDERED: MAGNESIUM HYDROXIDE 30 ML UDC PO PRN ×2 (15:00)
[2021-06-01] MEDS ORDERED: ACETAMINOPHEN 325 MG TABLET PO PRN (15:00)
[2021-06-01] MEDS ORDERED: MAG HYDROX/AL HYDROX/SIMETH 30 ML UDC PO PRN ×3 (15:00→17:30)
[2021-06-01] MEDS ORDERED: TEMAZEPAM 7.5 MG CAPSULE PO PRN (15:00)
[2021-06-01] MEDS ORDERED: LORAZEPAM 0.5 MG TABLET PO PRN (15:00)
[2021-06-01] MEDS ORDERED: BLOOD SUGAR DIAGNOSTIC 1 EACH STRIP IN ONE (15:00)
[2021-06-01] MEDS ORDERED: MIRT-121 PO (15:14)
[2021-06-01] MEDS ORDERED: PANT40TA2 PO (15:14)
[2021-06-01] MEDS ORDERED: BENZ0.5T43 PO (15:14)
[2021-06-01] MEDS ORDERED: MEGE40TA5 PO (15:14)
[2021-06-01] MEDS ORDERED: OLAN5TAB3 IM (15:14)
[2021-06-01] MEDS ORDERED: RISP1TAB97 PO (15:14)
[2021-06-01] MEDS ORDERED: LACT-246 PO (15:14)
--- NOTE | 2021-06-01 15:24 | NUR ---
GALINA Initial Discharge Plan: [facility], located at [facility] [place] [address] ([phone]). GALINA spoke with jessica Nunez ([phone]) and they stated pt is welcomed back upon dc. Pt does not have any supportive contact at this time. GALINA will work with the MD, treatment team, and family to help coordinate appropriate discharge.
--- NOTE | 2021-06-01 15:24 | NUR ---
SW Admit Source: Patient was placed on a 5150 hold and currently 5250. Patient is riesed. Patient brought to the hospital for GD. Patient brought in because patient was non compliant at [facility]. [facility] at [place] [address] ([phone]). SW spoke with jessica Nunez ([phone]) and they stated pt is welcomed back upon dc. Pt does not have any supportive contact at this time.
[2021-06-01 16:00] VITALS: BP 108/68
[2021-06-01] MEDS ORDERED: OLANZAPINE 10 MG VIAL IM PRN (16:30)
[2021-06-01] MEDS ORDERED: BISACODYL SUPP (10 MG) 10 MG/SUPP.RECT SUPP.RECT RC PRN (17:30)
[2021-06-01] MEDS ORDERED: NA PHOS,M-B/NA PHOS,DI-BA 1 EA ENEMA RC PRN (17:30)
[2021-06-01 20:00] VITALS: BP 110/70
[2021-06-01] MEDS: ATORVASTATIN 10 MG TABLET PO SCH (21:25)
[2021-06-01] MEDS: risperiDONE-M 0.5 MG TAB.RAPDIS PO SCH (21:25)
[2021-06-02 07:44] LABS: CHOLESTEROL 125 mg/dL (<200); HDL CHOLESTEROL 35 mg/dL (40-60); LDL 68 mg/dL (0-99); TRIGLYCERIDES 99 mg/dL (30-150)
[2021-06-02 07:49] LABS: ALANINE AMINOTRANSFERASE 17 U/L (12-78); ALBUMIN 2.4 g/dL (3.4-5.0); ALKALINE PHOSPHATASE 32 U/L (46-116); ASPARTATE AMINOTRANSFERASE 8 U/L (15-37); BILIRUBIN,TOTAL 0.2 mg/dL (0.2-1.0); CALCIUM, SERUM 8.1 mg/dL (8.5-10.1); CARBON DIOXIDE 25 mmol/L (21-32); CHLORIDE 104 mmol/L (98-107); CREATININE 0.5 mg/dL (0.6-1.3); GLUCOSE 103 mg/dL (74-106); POTASSIUM 3.4 mmol/L (3.5-5.1); SODIUM SERUM 137 mmol/L (136-145); TOTAL PROTEIN, SERUM 5.3 g/dL (6.4-8.2); UREA NITROGEN, BLOOD 14 mg/dL (7-18)
[2021-06-02] MEDS: ENSURE ENLIVE 237 ML LIQUID (VANILLA) PO SCH ×2 (07:57→16:53)
[2021-06-02 08:00] VITALS: BP 98/64
[2021-06-02] MEDS: risperiDONE-M 0.5 MG TAB.RAPDIS PO SCH ×2 (08:05→20:50)
[2021-06-02] MEDS: PANTOPRAZOLE 40 MG TABLET.DR PO SCH (08:05)
[2021-06-02] MEDS: DOCUSATE SODIUM 100 MG CAPSULE PO SCH ×2 (08:05→16:54)
[2021-06-02] MEDS: MULTIVITAMINS,THERAGRAN 1 UDTAB TABLET PO SCH (08:05)
[2021-06-02] MEDS: PROSTAT (PYXIS) 30 ML UDC PO SCH ×2 (09:00→17:00)
[2021-06-02] MEDS ORDERED: MEGESTROL ACETATE 40 MG TABLET PO SCH (09:00)
[2021-06-02] MEDS ORDERED: POTASSIUM CHLORIDE 20 MEQ POWDER PACKET PO SCH (10:00)
[2021-06-02 16:00] VITALS: BP 91/50
[2021-06-02 20:00] VITALS: BP_SYST 107; BP_SYST 93; BP_DIAS 56; BP_DIAS 63
[2021-06-02] MEDS: ATORVASTATIN 10 MG TABLET PO SCH (21:02)
[2021-06-03] MEDS: ENSURE ENLIVE 237 ML LIQUID (VANILLA) PO SCH ×2 (07:58→16:49)
[2021-06-03 08:00] VITALS: BP 93/59
[2021-06-03] MEDS: DOCUSATE SODIUM 100 MG CAPSULE PO SCH ×2 (08:00→16:49)
[2021-06-03] MEDS: PANTOPRAZOLE 40 MG TABLET.DR PO SCH (08:00)
[2021-06-03] MEDS: MULTIVITAMINS,THERAGRAN 1 UDTAB TABLET PO SCH (08:00)
[2021-06-03] MEDS: risperiDONE-M 0.5 MG TAB.RAPDIS PO SCH ×2 (08:00→20:03)
[2021-06-03] MEDS: PROSTAT (PYXIS) 30 ML UDC PO SCH (09:00)
[2021-06-03] MEDS: PROSOURCE / PROSTAT (PYXIS) 30 ML UDC PO SCH ×2 (11:11→16:49)
[2021-06-03 16:00] VITALS: BP 95/57
[2021-06-03 20:38] VITALS: BP 102/63
[2021-06-03] MEDS: ATORVASTATIN 10 MG TABLET PO SCH (21:20)
[2021-06-04] MEDS: ENSURE ENLIVE 237 ML LIQUID (VANILLA) PO SCH ×2 (07:26→17:29)
[2021-06-04] MEDS: DOCUSATE SODIUM 100 MG CAPSULE PO SCH ×2 (07:28→17:29)
[2021-06-04] MEDS: PANTOPRAZOLE 40 MG TABLET.DR PO SCH (07:28)
[2021-06-04] MEDS: risperiDONE-M 0.5 MG TAB.RAPDIS PO SCH ×2 (07:28→21:18)
[2021-06-04] MEDS: MULTIVITAMINS,THERAGRAN 1 UDTAB TABLET PO SCH (07:28)
[2021-06-04] MEDS: PROSOURCE / PROSTAT (PYXIS) 30 ML UDC PO SCH ×2 (07:29→17:29)
[2021-06-04 08:00] VITALS: BP 103/55
[2021-06-04 16:00] VITALS: BP 100/62
[2021-06-04 20:26] VITALS: BP 101/63
[2021-06-04] MEDS: ATORVASTATIN 10 MG TABLET PO SCH (21:23)
[2021-06-05] MEDS: PANTOPRAZOLE 40 MG TABLET.DR PO SCH ×2 (07:30→08:15)
[2021-06-05 08:00] VITALS: BP 121/73
[2021-06-05] MEDS: DOCUSATE SODIUM 100 MG CAPSULE PO SCH ×3 (08:14→16:07)
[2021-06-05] MEDS: MULTIVITAMINS,THERAGRAN 1 UDTAB TABLET PO SCH ×2 (08:14→08:44)
[2021-06-05] MEDS: PROSOURCE / PROSTAT (PYXIS) 30 ML UDC PO SCH ×3 (08:14→16:08)
[2021-06-05] MEDS: risperiDONE-M 0.5 MG TAB.RAPDIS PO SCH ×3 (08:14→21:17)
[2021-06-05] MEDS: ENSURE ENLIVE 237 ML LIQUID (VANILLA) PO SCH ×3 (08:15→16:08)
--- NOTE | 2021-06-05 09:47 | NUR ---
DUE TP PT'S REFUSAL TO TAKE RISPERDAL, OLANZAPINE 5MG IM GIVEN. WILL CONTINUE TO MONITOR.
[2021-06-05 16:00] VITALS: BP 100/57
[2021-06-05 19:27] VITALS: BP 97/63
[2021-06-05 19:33] VITALS: BP 97/63
[2021-06-05] MEDS: ATORVASTATIN 10 MG TABLET PO SCH (21:22)
[2021-06-06 07:41] LABS: CALCIUM, SERUM 8.2 mg/dL (8.5-10.1); CARBON DIOXIDE 26 mmol/L (21-32); CHLORIDE 107 mmol/L (98-107); CREATININE 0.5 mg/dL (0.6-1.3); GLUCOSE 93 mg/dL (74-106); POTASSIUM 3.9 mmol/L (3.5-5.1); SODIUM SERUM 140 mmol/L (136-145); UREA NITROGEN, BLOOD 17 mg/dL (7-18)
[2021-06-06 08:41] VITALS: BP 100/57
[2021-06-06] MEDS: ENSURE ENLIVE 237 ML LIQUID (VANILLA) PO SCH ×2 (09:25→17:02)
[2021-06-06] MEDS: PANTOPRAZOLE 40 MG TABLET.DR PO SCH (09:25)
[2021-06-06] MEDS: risperiDONE-M 0.5 MG TAB.RAPDIS PO SCH ×2 (09:25→21:23)
[2021-06-06] MEDS: MULTIVITAMINS,THERAGRAN 1 UDTAB TABLET PO SCH (09:25)
[2021-06-06] MEDS: DOCUSATE SODIUM 100 MG CAPSULE PO SCH ×2 (09:25→17:03)
[2021-06-06] MEDS: PROSOURCE / PROSTAT (PYXIS) 30 ML UDC PO SCH ×2 (09:27→17:03)
[2021-06-06 16:18] VITALS: BP 113/69
[2021-06-06 20:25] VITALS: BP 108/56
[2021-06-06] MEDS: ATORVASTATIN 10 MG TABLET PO SCH (21:28)
[2021-06-07 08:00] VITALS: BP 115/72
[2021-06-07] MEDS: ENSURE ENLIVE 237 ML LIQUID (VANILLA) PO SCH ×2 (08:21→16:27)
[2021-06-07] MEDS: PROSOURCE / PROSTAT (PYXIS) 30 ML UDC PO SCH ×2 (08:25→16:26)
[2021-06-07] MEDS: risperiDONE-M 0.5 MG TAB.RAPDIS PO SCH ×2 (08:26→21:39)
[2021-06-07] MEDS: DOCUSATE SODIUM 100 MG CAPSULE PO SCH ×2 (08:26→16:26)
[2021-06-07] MEDS: PANTOPRAZOLE 40 MG TABLET.DR PO SCH (08:26)
[2021-06-07] MEDS: MULTIVITAMINS,THERAGRAN 1 UDTAB TABLET PO SCH (08:26)
[2021-06-07 16:34] VITALS: BP 97/59
[2021-06-07 20:00] VITALS: BP 118/68
[2021-06-07] MEDS: ATORVASTATIN 10 MG TABLET PO SCH (21:40)
[2021-06-08 08:00] VITALS: BP 102/63
[2021-06-08] MEDS: PANTOPRAZOLE 40 MG TABLET.DR PO SCH (08:05)
[2021-06-08] MEDS: DOCUSATE SODIUM 100 MG CAPSULE PO SCH ×3 (08:05→17:00)
[2021-06-08] MEDS: risperiDONE-M 0.5 MG TAB.RAPDIS PO SCH ×2 (08:06→21:27)
[2021-06-08] MEDS: ENSURE ENLIVE 237 ML LIQUID (VANILLA) PO SCH ×2 (08:06→17:20)
[2021-06-08] MEDS: MULTIVITAMINS,THERAGRAN 1 UDTAB TABLET PO SCH (08:06)
[2021-06-08] MEDS: PROSOURCE / PROSTAT (PYXIS) 30 ML UDC PO SCH ×3 (08:07→17:00)
[2021-06-08 16:00] VITALS: BP 108/62
[2021-06-08 20:00] VITALS: BP 105/64
[2021-06-08] MEDS: ATORVASTATIN 10 MG TABLET PO SCH (21:27)
[2021-06-09 08:00] VITALS: BP 90/60
[2021-06-09] MEDS: risperiDONE-M 0.5 MG TAB.RAPDIS PO SCH ×2 (08:43→21:20)
[2021-06-09] MEDS: PROSOURCE / PROSTAT (PYXIS) 30 ML UDC PO SCH ×3 (08:43→16:26)
[2021-06-09] MEDS: DOCUSATE SODIUM 100 MG CAPSULE PO SCH ×2 (08:43→16:25)
[2021-06-09] MEDS: ENSURE ENLIVE 237 ML LIQUID (VANILLA) PO SCH ×2 (08:43→16:27)
[2021-06-09] MEDS: PANTOPRAZOLE 40 MG TABLET.DR PO SCH (08:43)
[2021-06-09] MEDS: MULTIVITAMINS,THERAGRAN 1 UDTAB TABLET PO SCH (08:43)
--- NOTE | 2021-06-09 09:15 | NUR ---
RN Notes: Received pt. asleep in bed, breathing is even and unlabored. Ate 100% for breakfast, refused to take the prostat and compliant on the rest of meds. Pt.is pleasant upon approached and cooperative with the morning care. Encouraged to verbalize feelings and motivated to attend group activity. No distress and no agitation noted. Will continue to monitor for safety.
--- NOTE | 2021-06-09 13:03 | NUR ---
RN Notes: Pt. ate 100% for lunch by herself, quiet and interacts minimally to staffs. Pt. doesn't want to attend group activity. Needs attended, no distress and no agitation noted. Will continue to monitor for safety.
[2021-06-09 16:00] VITALS: BP 99/50
--- NOTE | 2021-06-09 17:14 | NUR ---
RN-CO: Patient denied pain and discomforts. Per report she is clearer and more receptive, alert. She is eating an average of 75%-8o% since she came in the unit. We will continue to monitor and notify .
--- NOTE | 2021-06-09 19:05 | NUR ---
RN opening notes Received Pt from morning nurse. Pt is eating snacks at the bedside. Pt is alert and orientedX1, calm, quiet, guarded, compliant with care and answer questions. On room air. No SOB. No S/s of distress noted. V is stable. Snacks is provided. Reality orientation is provided. Safety precautions is maintained all the time. Will continue to monitor for behavior and safety and continue to monitor Q 15 mins checks per hospital protocol.
[2021-06-09 20:24] VITALS: BP 103/68
[2021-06-09] MEDS: ATORVASTATIN 10 MG TABLET PO SCH (21:20)
[2021-06-10] MEDS: PANTOPRAZOLE 40 MG TABLET.DR PO SCH (07:48)
[2021-06-10 08:00] VITALS: BP 112/73
[2021-06-10] MEDS: MULTIVITAMINS,THERAGRAN 1 UDTAB TABLET PO SCH (08:24)
[2021-06-10] MEDS: DOCUSATE SODIUM 100 MG CAPSULE PO SCH ×2 (08:24→17:11)
[2021-06-10] MEDS: risperiDONE-M 0.5 MG TAB.RAPDIS PO SCH ×2 (08:24→20:34)
[2021-06-10] MEDS: ENSURE ENLIVE 237 ML LIQUID (VANILLA) PO SCH ×2 (08:26→17:11)
[2021-06-10] MEDS: PROSOURCE / PROSTAT (PYXIS) 30 ML UDC PO SCH ×2 (08:52→17:00)
--- NOTE | 2021-06-10 14:07 | NUR ---
RN-NOTES PATIENT IS COOPERATIVE WITH CARE ,SELECTIVE WITH MEDICATIONS REFUSED PROSTAT DESPITE ENCOURAGEMENT. PATIENT IS QUIET AND GUARDED BUT COOPERATIVE WITH CARE. ENCOURAGED TO VERBALIZED FEELINGS AND CONCERN TO THE STAFF. PATIENT REMAIN QUIET ATE 100 % EACH MEALS .
[2021-06-10 16:00] VITALS: BP 103/68
[2021-06-10 20:25] VITALS: BP 104/67
[2021-06-10] MEDS: ATORVASTATIN 10 MG TABLET PO SCH (21:24)
--- NOTE | 2021-06-10 22:09 | NUR ---
RN-NOTES: PATIENT RESTING IN HER ROOM, DISORGNIZED , EASILY AGITATED PARANOID FORGETFUL, COOPERATIVE WITH CARE AND COMPLIANT WITH SCHEDULE MEDICATIONS , NO ACUTE DISTRESS NOTED , ENCOURAGED PT. TO VERBALIZED ANY FEELING OR CONCERN , REDIRECTABLE ,NEEDS FREQUENTLY REDIRECTIONS , WILL CONTINUE TO MONITOR Q15 SAFETY AND BEHAVIOR.
[2021-06-11 08:00] VITALS: BP 104/59
[2021-06-11] MEDS: risperiDONE-M 0.5 MG TAB.RAPDIS PO SCH ×2 (09:25→21:30)
[2021-06-11] MEDS: MULTIVITAMINS,THERAGRAN 1 UDTAB TABLET PO SCH (09:26)
[2021-06-11] MEDS: DOCUSATE SODIUM 100 MG CAPSULE PO SCH ×2 (09:26→17:50)
[2021-06-11] MEDS: PANTOPRAZOLE 40 MG TABLET.DR PO SCH (09:26)
[2021-06-11] MEDS: ENSURE ENLIVE 237 ML LIQUID (VANILLA) PO SCH ×2 (09:27→17:50)
[2021-06-11] MEDS: PROSOURCE / PROSTAT (PYXIS) 30 ML UDC PO SCH ×2 (09:28→17:51)
[2021-06-11 16:00] VITALS: BP 109/69
[2021-06-11 20:54] VITALS: BP 112/63
[2021-06-11] MEDS: ATORVASTATIN 10 MG TABLET PO SCH (21:30)
--- NOTE | 2021-06-11 23:23 | NUR ---
Patient lying down in bed awake,appears to be disorganized thought,staring blankly towards the ceiling,non interactive upon approach but able to take her scheduled night time medications.Patient remains on fall precautions,bed alarm on.Will continue to monitor q15 min rounds for safety.
--- NOTE | 2021-06-11 23:25 | NUR ---
Patient refused skin assessment offered x 3.
[2021-06-12] MEDS: PANTOPRAZOLE 40 MG TABLET.DR PO SCH (07:30)
[2021-06-12 08:00] VITALS: BP 103/62
[2021-06-12] MEDS: PROSOURCE / PROSTAT (PYXIS) 30 ML UDC PO SCH (09:00)
[2021-06-12] MEDS: DOCUSATE SODIUM 100 MG CAPSULE PO SCH (09:32)
[2021-06-12] MEDS: MULTIVITAMINS,THERAGRAN 1 UDTAB TABLET PO SCH (09:32)
[2021-06-12] MEDS: ENSURE ENLIVE 237 ML LIQUID (VANILLA) PO SCH (09:32)
[2021-06-12] MEDS: risperiDONE-M 0.5 MG TAB.RAPDIS PO SCH (09:32)
--- NOTE | 2021-06-12 10:09 | NUR ---
SW Discharge Note: Patient will be discharged to nursing home facility, [facility], located at [address] [place] [address] ([phone]) . Please arrange ambulance transportation at 2PM. trail maintenance worker spoke with Mayra jessica ([phone]), who stated patient will be accepted at the facility today. Patient does not have any supportive contact. Patient is alert and oriented x2 and is unable to plan for self-care. Patient denies any suicidal or homicidal ideation. Patient is aware and agreeable with discharge plans. Patient will follow up with Dr. Khan (Psychiatrist) located at [address], [place]; ([phone]) and (Outside Physical Damage Appraiser) Dr. Montague [address], [place] [address]; ([phone]). Patient presents with euthymic mood and congruent affect.
--- NOTE | 2021-06-12 15:00 | NUR ---
Patient discharged to [facility] in stable condition.Compliant with medications ,cooperative with treatment plans Patient denies SI/HI/AVH .Behavior improved ,psychiatric tx plans met ,medical tx plans differed for for continual monitoring Educated pt about after care plan (Exit -care)and copy provided .Returned personal belongings to patient med list given and explained to patient able to verbalize understanding, report given to Aníbal RN in facility .Vs stable ,no c/o pain .Patient seen by Covering and with discharge orders .Patient discharge at 15:00 with ambulance.
== END 2021-06-12 15:00 | DRG 885 ==
LOC: GPS 14:12
PROVIDERS: ADMIT Psychiatry & Neurology Psychosomatic Medicine; ATTEND Student in an Organized Health Care Education/Training Program
DX: F25.0 Schizoaffective disorder, bipolar type (principal); E44.0 Moderate protein-calorie malnutrition; F29 Unspecified psychosis not due to a substance or known physiological condition; F41.9 Anxiety disorder, unspecified; Z73.6 Limitation of activities due to disability; G20 Parkinson's disease; F02.80 Dementia in other diseases classified elsewhere, unspecified severity, without behavioral disturbance, psychotic disturbance, mood disturbance, and anxiety; E78.5 Hyperlipidemia, unspecified; I10 Essential (primary) hypertension; E87.6 Hypokalemia; E88.09 Other disorders of plasma-protein metabolism, not elsewhere classified; J44.9 Chronic obstructive pulmonary disease, unspecified; R94.31 Abnormal electrocardiogram [ECG] [EKG]; F94.0 Selective mutism; Z87.891 Personal history of nicotine dependence
CPT/HCPCS: 36415; 80048-TC; 80053-TC; 80061-TC; 82962-TC; 83735-TC; 87081-TC; 97112-TC; 97116-TC; 97530-TC; 97535-TC; J3490